=== PATIENT | female | born 1960 | race Two or more races ===

== ENCOUNTER 2022-02-07 07:45 | Inpatient (IN) | payer OTHER ==
[~2022-02-07] VITALS: Ht 154.9 cm; Wt 93.1 kg
[~2022-02-07 07:45] MED LIST: GLIM4TAB7 PO; METF500T PO; ROSU20TA2 PO
[2022-02-08 13:30] LABS: ABG BASE EXCESS -7.8 mmol/L (-2.0-2.0); ABG HCO3 15.6 mmol/L (22.0-26.0); ABG OXYGEN SATURATION 97.6 % (94-97); ABG PCO2 (T) 26.5 mmHg (32.0-45.0); ABG PO2 (T) 110.3 mmHg (75.0-100.0); FCOHb 0.4 % (0.0-3.9); FMetHb 0.1 % (0.0-1.5); FO2Hb 97.1 % (94-97); TOTAL HEMOGLOBIN 12.4 G/dl (12.0-16.0)
[2022-02-08] MEDS ORDERED: LEVO150T98 PO (14:14)
[2022-02-08] MEDS ORDERED: CARV-50 PO (14:14)
[2022-02-08] MEDS ORDERED: INSU100V41 SQ (14:14)
[2022-02-08] MEDS ORDERED: SPIR100T5 PO (14:14)
[2022-02-08] MEDS ORDERED: TICA90TA2 PO (14:14)
[2022-02-08 14:28] LABS: BASOPHILS % (AUTO) 0.5 % (0-1); EOSINOPHILS # (AUTO) 0.1 X10'3 (0-0.9); EOSINOPHILS % (AUTO) 1.4 % (0-6); LYMPHOCYTES # (AUTO) 2.3 X10'3 (1.1-4.8); LYMPHOCYTES % (AUTO) 29.3 % (21-51); MEAN CORPUSCULAR HEMOGLOBIN 27.8 PG (27.0-31.0); MEAN CORPUSCULAR HGB CONC 32.2 g/dL (33.0-36.5); MEAN CORPUSCULAR VOLUME 86.4 FL (78-98); MEAN PLATELET VOLUME 9.6 FL (7.4-10.4); MONOCYTES # (AUTO) 0.7 X10'3 (0-0.9); MONOCYTES % (AUTO) 8.4 % (2-12); NEUTROPHILS # (AUTO) 4.7 X10'3 (1.8-7.7); NEUTROPHILS % (AUTO) 60.4 % (42-75); PRE OP HEMATOCRIT 36.9 % (35.0-45.0); PRE OP HEMOGLOBIN 11.9 g/dL (12.0-16.0); PRE OP PLATELET COUNT 194 X10'3 (140-440); RED BLOOD COUNT 4.28 X10'6 (4.20-5.60); RED CELL DISTRIBUTION WIDTH 15.7 % (11.5-14.5)
[2022-02-08 14:37] LABS: CLARITY,URINE SLIGHTLY CLOUDY (Clear); COLOR,URINE YELLOW (Yellow); GLUCOSE, URINE NEGATIVE (Neg); KETONES,URINE NEGATIVE (Neg); LEUKOCYTE ESTERASE ,URINE NEGATIVE (Neg); NITRITES, URINE NEGATIVE (Neg); OCCULT BLOOD,URINE MODERATE (Neg); PROTEIN,URINE 100 mg/dl (Neg); UROBILINOGEN,URINE 0.2 E.U/dL (0.2-1.0)
[2022-02-08 14:39] LABS: UA COLLECTION TYPE NON-SPECIFIED
[2022-02-08 14:45] LABS: PRE OP PROTIME 10.5 SECONDS (9.0-12.0)
[2022-02-08 14:46] LABS: HEMOGLOBIN A1C 8.5 % (4.5-6.2)
[2022-02-08 14:47] LABS: ALBUMIN 4.3 G/DL (3.4-5.0); ALBUMIN/GLOBULIN RATIO 1.1 (1.1-1.5); ALKALINE PHOSPHATASE 86 IU/L (46-116); BLOOD UREA NITROGEN 20 MG/DL (7-18); BUN/CREATININE RATIO 14.5 (6.6-38.0); CALCIUM 9.2 MG/DL (8.5-10.1); CHLORIDE 102 MMOL/L (99-107); CREATININE 1.38 MG/DL (0.40-0.90); PRE OP ALT 25 U/L (30-65); PRE OP ANION GAP 13 (8-16); PRE OP AST 30 U/L (10-37); PRE OP BILIRUB, TOTAL 1.4 MG/DL (0.0-1.0); PRE OP GLUCOSE 140 MG/DL (70-104); PRE OP SODIUM 139 MMOL/L (135-145); TOTAL CARBON DIOXIDE 24.1 MMOL/L (24-32); TOTAL PROTEIN 8.3 G/DL (6.4-8.2); eGFR 39 ML/MIN
[2022-02-08 15:09] LABS: AMORPHOUS URATES 1+; BACTERIA,URINE FEW /HPF (Neg); HYALINE CASTS 0-3 /LPF (NEGATIVE); MUCUS STRANDS FEW /LPF (Neg); SQUAMOUS EPITHELIAL CELL,UR MODERATE /LPF (FEW)
[2022-02-08 15:10] LABS: RBC,URINE NONE SEEN /HPF (0-2); WBC,URINE 0-4 /HPF (0-4)
[2022-02-08 15:13] LABS: FINE GRANULAR CAST 0-3 /LPF (NEGATIVE)
[2022-02-11] VITALS (23 sets, daily range): BP systolic 95–144; BP diastolic 46–76
[2022-02-11] MEDS ORDERED: ringers solution, lacted 1,000 ML IV SCH (05:00)
[2022-02-11] MEDS ORDERED: LORazepam 2 mg/ml vial IV ONE (05:30)
[2022-02-11] MEDS ORDERED: DOCUMENT DATE & TIME OF BETA-BLOCKER PO ONE (05:30)
[2022-02-11] MEDS ORDERED: albuterol 2.5 MG/3 ML nebule NEB ONE (05:30)
[2022-02-11] MEDS ORDERED: cefazolin/dext.iso 2gm/100ml 100 ML IV ONE (05:30)
[2022-02-11] MEDS ORDERED: mupirocin 2% nasal ointment 1gm UD NS ONE (05:30)
[2022-02-11] MEDS ORDERED: famotidine 20mg tablet PO ONE (05:30)
[2022-02-11] MEDS ORDERED: vancomycin 1,500 MG in NS 300ml IV soln IV ONE (05:30)
[2022-02-11] MEDS ORDERED: ceFAZolin 1000mg inj ONE (05:33)
[2022-02-11] MEDS ORDERED: epiNEPHrine 1 mg/ml inj ONE (05:33)
--- NOTE | 2022-02-11 05:41 | NUR ---
Received pt as a direct admit, a 61 year old female to under go a CABG by Dr Trivedi. 18 G PIV placed in the rt AC, pt cleaned per MD orders, Blood band and ID band placed on pt, Pt is in a SB rhythm, message sent to Pharmacy regarding the need for antibiotics to be sent up.
--- NOTE | 2022-02-11 06:14 | NUR ---
report given to rec rn plan of care reviewed
--- NOTE | 2022-02-11 06:30 | NUR ---
Patient in room CICU 2013. I have received report from Rajesh CALLAWAY and had the opportunity to ask questions and assume patient care.
[2022-02-11] MEDS ORDERED: gabapentin 400mg capsule PO ONE (07:08)
--- NOTE | 2022-02-11 07:20 | NUR ---
Patient to CVOR, accompanied by 2 RN's and OR tech
[2022-02-11] MEDS ORDERED: SUFENTANIL CITRATE 50 MCG/ML 2ml ampule IV ONE (07:27)
[2022-02-11] MEDS ORDERED: propofol inj 20 ML IV ONE (07:29)
[2022-02-11] MEDS ORDERED: rocuronium 10mg/ml inj IV ONE ×3 (07:30→07:32)
[2022-02-11] MEDS ORDERED: papaverine 30 mg/ml 2ml inj. IA ONE (07:30)
[2022-02-11] MEDS ORDERED: MIDAZolam 1 MG/ML 5ML VIAL ONE (07:30)
[2022-02-11] MEDS ORDERED: heparin 10,000 units/1 ML INJ IR ONE (07:30)
[2022-02-11] MEDS ORDERED: sevoflurane 250ml liquid IH ONE (07:32)
[2022-02-11] MEDS ORDERED: protamine sulf. 10mg/ml inj. IV ONE (07:32)
[2022-02-11] MEDS ORDERED: INSULIN R 100 UNIT in NS 100ML (1 UNIT/1 ML) BAG IV ONE (07:32)
[2022-02-11] MEDS ORDERED: albumin (Human) 5% 250ml BOTTLE IV ONE (07:32)
[2022-02-11] MEDS ORDERED: ePHEDrine 50MG/ML INJ. ONE (07:32)
[2022-02-11] MEDS ORDERED: dextrose 50%-water 50ml dispensing syringe IV PRN ×2 (07:55→12:05)
[2022-02-11] MEDS ORDERED: Insulin Reg/NS 100units/100mL 100 ML IV SCH (07:55)
[2022-02-11] MEDS ORDERED: insulin glargine (Lantus) pen - multi-dose SQ PRN ×2 (07:55→12:05)
[2022-02-11] MEDS ORDERED: NORepinephrine 1 mg/ml inj IV ONE (08:00)
[2022-02-11] MEDS ORDERED: heparin 10,000 units/1 ML INJ ONE ×2 (08:00)
[2022-02-11] MEDS ORDERED: sodium bicarbonate (8.4%) 1 mEq/ml syringe ONE (08:00)
[2022-02-11] MEDS ORDERED: papaverine 30 mg/ml 2ml inj. ONE (08:00)
[2022-02-11] MEDS ORDERED: calcium chloride 100 MG/1 ML inj IV ONE (08:00)
[2022-02-11] MEDS ORDERED: albumin (human) 25% 100 ML IV solution IV ONE (08:00)
[2022-02-11] MEDS ORDERED: MAGNESIUM SULFATE 4 MEQ/ML (5gm/10ml) injection ONE (08:00)
[2022-02-11] MEDS ORDERED: aminocaproic acid 250 MG/1 ML inj. ONE (08:00)
[2022-02-11] MEDS ORDERED: heparin 1,000 units/ml 10ml inj ONE (08:00)
[2022-02-11] MEDS ORDERED: methylPREDNISolone sod succ 1000mg vial ONE (08:00)
[2022-02-11 09:06] LABS: ABG OXYGEN SATURATION 99.2 % (94-97); ABG PCO2 32.2 mmHg (32.0-45.0); CL (ABG) 109 mmol/L (98-110); FCOHb 0.3 % (0.0-3.9); FMetHb 0.3 % (0.0-1.5); FO2Hb 98.6 % (94-97); GLUCOSE (ABG) 161 mg/dl (70-105); K (ABG) 3.8 mmol/L (3.5-5.0); TOTAL HEMOGLOBIN 10.2 G/dl (12.0-16.0)
[2022-02-11 09:53] LABS: ABG BASE EXCESS -6.5 mmol/L (-2.0-2.0); ABG OXYGEN SATURATION 99.6 % (94-97); ABG PCO2 37.7 mmHg (32.0-45.0); ABG PO2 538.6 mmHg (75.0-100.0); CL (ABG) 105 mmol/L (98-110); FCOHb 0.4 % (0.0-3.9); FMetHb 0.3 % (0.0-1.5); FO2Hb 98.9 % (94-97); GLUCOSE (ABG) 155 mg/dl (70-105); IONIZED CA (ABG) 0.82 mmol/L (1.10-1.43); K (ABG) 4.1 mmol/L (3.5-5.0); TOTAL HEMOGLOBIN 8.8 G/dl (12.0-16.0)
--- NOTE | 2022-02-11 09:56 | NUR ---
DM/CABG Consults: Pt s/p CABGx4 this admit w/ hx T2DM A1C 8.5% per EMR. Pt would benefit from written/verbal high protein, HH, and DM eds once appropriate post-op prior to discharge. Addendum: 02/11/22 at [address] Amended: Links added. Addendum: 02/12/22 at [address] CORRECTION* DM/CABG Consults: Pt s/p CABGx5 this admit w/ hx T2DM A1C 8.5% per EMR. Pt would benefit from written/verbal high protein, HH, and DM eds once appropriate post-op prior to discharge.
[2022-02-11 10:13] LABS: ABG BASE EXCESS VENOUS -1.9 mmol/L (-2.0 - 2.0); ABG HCO3 VENOUS 23.3 mmol/L (21.0-28.0); ABG PCO2 VENOUS 41.6 mmHg (38.0-51.0); ABG PO2 VENOUS 46.2 mmHg (25.0-35.0); CL (ABG) 105 mmol/L (98-110); FCOHb VENOUS 0.7 % (0.0- 3.9); FHHb VENOUS 16.1 %; FMetHb VENOUS 0.3 % (0.0 - 0.5); FO2Hb VENOUS 82.9 %; GLUCOSE (ABG) 141 mg/dl (70-105); IONIZED CA (ABG) 1.04 mmol/L (1.10-1.43); K (ABG) 4.1 mmol/L (3.5-5.0)
[2022-02-11 10:50] LABS: ABG BASE EXCESS -1.6 mmol/L (-2.0-2.0); ABG HCO3 22.2 mmol/L (22.0-26.0); ABG OXYGEN SATURATION 99.5 % (94-97); ABG PCO2 33.8 mmHg (32.0-45.0); ABG PO2 420.8 mmHg (75.0-100.0); CL (ABG) 106 mmol/L (98-110); FCOHb 0.6 % (0.0-3.9); FMetHb 0.3 % (0.0-1.5); FO2Hb 98.6 % (94-97); GLUCOSE (ABG) 126 mg/dl (70-105); IONIZED CA (ABG) 0.96 mmol/L (1.10-1.43); K (ABG) 4.2 mmol/L (3.5-5.0); TOTAL HEMOGLOBIN 8.3 G/dl (12.0-16.0)
[2022-02-11 11:36] LABS: ABG BASE EXCESS VENOUS -1.6 mmol/L (-2.0 - 2.0); ABG HCO3 VENOUS 23.5 mmol/L (21.0-28.0); ABG PCO2 VENOUS 40.9 mmHg (38.0-51.0); ABG PO2 VENOUS 32.1 mmHg (25.0-35.0); CL (ABG) 106 mmol/L (98-110); FCOHb VENOUS 0.9 % (0.0- 3.9); FHHb VENOUS 35.2 %; FMetHb VENOUS 0.3 % (0.0 - 0.5); FO2Hb VENOUS 63.6 %; GLUCOSE (ABG) 117 mg/dl (70-105); IONIZED CA (ABG) 1.04 mmol/L (1.10-1.43); K (ABG) 3.8 mmol/L (3.5-5.0); TOTAL HEMOGLOBIN 8.8 G/dl (12.0-16.0)
[2022-02-11 11:38] LABS: ACTIVATED CLOTTING TIME 136 SEC (101-148)
[2022-02-11] MEDS ORDERED: Neutra Phos packet PO PRN (12:05)
[2022-02-11] MEDS ORDERED: bisacodyl 10mg suppository rectal RC PRN (12:05)
[2022-02-11] MEDS ORDERED: potassium Cl 20 mEq SR tablet PO PRN (12:05)
[2022-02-11] MEDS ORDERED: magnesium hydroxide 30ml (MOM) UD suspension PO PRN (12:05)
[2022-02-11] MEDS ORDERED: sodium chloride 0.45% 1,000 ML IV SCH (12:05)
[2022-02-11] MEDS ORDERED: HYDROcodone/acetaminophen 10/325mg tab PO PRN (12:05)
[2022-02-11] MEDS ORDERED: sodium phosphate inj. 15 MMOL in dextrose 5%-water 250 ML IV PRN (12:05)
[2022-02-11] MEDS ORDERED: sodium phosphate inj. 30 MMOL in dextrose 5%-water 250 ML IV PRN (12:05)
[2022-02-11] MEDS: Insulin Reg/NS 100units/100mL 100 ML IV SCH (12:05)
[2022-02-11] MEDS ORDERED: metoclopramide 5 mg/ml inj IV PRN (12:05)
[2022-02-11] MEDS ORDERED: magnesium citrate 296ml oral solution PO PRN (12:05)
[2022-02-11] MEDS ORDERED: niCARDipine-NS 40mg/200ml IVPB 200 ML IV PRN (12:05)
[2022-02-11] MEDS ORDERED: nitroGLYCERIN-Tridil 50MG/D5W 250 ML IV SCH (12:05)
[2022-02-11] MEDS ORDERED: acetaminophen 325mg tablet PO PRN ×2 (12:05)
[2022-02-11] MEDS ORDERED: magnesium 4gm in 100ml NS 100 ML IV PRN (12:05)
[2022-02-11] MEDS ORDERED: potassium CL 10mEq/100ml bag 100 ML IV PRN (12:05)
[2022-02-11] MEDS ORDERED: magnesium 2GM in 50ml NS 50 ML IV PRN (12:05)
[2022-02-11] MEDS ORDERED: mineral oil 133ml enema RC PRN (12:05)
--- NOTE | 2022-02-11 12:30 | NUR ---
Received to room 2013, accompanied by MDs and surgical crew. Placed on ventilator, to monitor technician, arterial line and PA line pressure monitored. Chest tubes to suction at 20 cm. Moctezuma cath to gravity drainage. Dressings are dry and intact. See assessment record. All vasoactive drugs are infusing via central line.
[2022-02-11 12:47] LABS: ABG BASE EXCESS -2.8 mmol/L (-2.0-2.0); ABG HCO3 21.6 mmol/L (22.0-26.0); ABG OXYGEN SATURATION 98.8 % (94-97); ABG PCO2 (T) 34.7 mmHg (32.0-45.0); ABG PO2 (T) 169.1 mmHg (75.0-100.0); FCOHb 0.3 % (0.0-3.9); FMetHb 0.5 % (0.0-1.5); PEEP 5 cm H2O; RESPIRATORY RATE 12 b/min; TIDAL VOLUME 500 mL; TOTAL HEMOGLOBIN 10.7 G/dl (12.0-16.0)
[2022-02-11 13:07] LABS: BASOPHILS % (AUTO) 0.2 % (0-1); EOSINOPHILS % (AUTO) 0.4 % (0-6); HEMATOCRIT 29.7 % (35.0-45.0); LYMPHOCYTES # (AUTO) 1.2 X10'3 (1.1-4.8); LYMPHOCYTES % (AUTO) 14.3 % (21-51); MEAN CORPUSCULAR HGB CONC 33.6 g/dL (33.0-36.5); MEAN CORPUSCULAR VOLUME 86.3 FL (78-98); MEAN PLATELET VOLUME 9.9 FL (7.4-10.4); MONOCYTES # (AUTO) 0.4 X10'3 (0-0.9); MONOCYTES % (AUTO) 4.3 % (2-12); NEUTROPHILS # (AUTO) 6.7 X10'3 (1.8-7.7); NEUTROPHILS % (AUTO) 80.8 % (42-75); PLATELET COUNT 100 X10'3 (140-440); RED BLOOD COUNT 3.44 X10'6 (4.20-5.60); WHITE BLOOD COUNT 8.3 X10'3 (4.5-11.0)
[2022-02-11 13:17] LABS: APTT 27 SECONDS (22-32)
[2022-02-11] MEDS: gabapentin 300mg capsule PO SCH ×2 (13:18→20:11)
[2022-02-11 13:19] LABS: ALANINE AMINOTRANSFERASE 13 U/L (12-78); ALBUMIN 3.2 G/DL (3.4-5.0); ALBUMIN/GLOBULIN RATIO 1.5 (1.1-1.5); ALKALINE PHOSPHATASE 56 IU/L (46-116); ANION GAP 13 (8-16); ASPARTATE AMINO TRANSFERASE 33 U/L (10-37); BILIRUBIN,TOTAL 1.2 MG/DL (0.1-1.0); BLOOD UREA NITROGEN 14 MG/DL (7-18); BUN/CREATININE RATIO 16.7 (6.6-38.0); CALCIUM 7.6 MG/DL (8.5-10.1); CHLORIDE 108 MMOL/L (99-107); CREATININE 0.84 MG/DL (0.40-0.90); GLUCOSE 125 MG/DL (70-104); MAGNESIUM 2.8 MG/DL (1.5-2.4); PHOSPHORUS 2.4 MG/DL (2.3-4.5); POTASSIUM 3.6 MMOL/L (3.5-5.1); SODIUM 143 MMOL/L (135-145); TOTAL CARBON DIOXIDE 22.2 MMOL/L (24-32); TOTAL PROTEIN 5.3 G/DL (6.4-8.2); eGFR 69 ML/MIN
[2022-02-11] MEDS: albumin (Human) 5% 250ml 250 ML IV PRN ×3 (13:30→17:52)
[2022-02-11] MEDS: potassium Cl 20mEq/100mL bag 100 ML IV PRN ×5 (13:53→21:36)
[2022-02-11] MEDS: morphine 2 MG/ML inj. syringe IV PRN (14:46)
[2022-02-11] MEDS: ceFAZolin/D5W- 1GM premix 50 ML IV SCH (15:26)
[2022-02-11] MEDS: morphine 4 MG/ML inj SYRINge IV PRN ×2 (16:05→21:36)
--- NOTE | 2022-02-11 18:09 | NUR ---
Problems reprioritized. Patient report given, questions answered & plan of care reviewed with .
--- NOTE | 2022-02-11 18:14 | NUR ---
called Dr. Trivedi informed him of patients weaning parameters, that she had good weaning parameters nif -25 vc 1088 rsbi 55 but that she did not have a cuff leak, updated him on her pa and sbp, stated that she can have another 5% albumin in 250ml if needed. He stated to " pull the tube" and that he did not want any steroids
[2022-02-11] MEDS ORDERED: albumin (Human) 5% 250ml 250 ML IV PRN (18:20)
--- NOTE | 2022-02-11 18:30 | NUR ---
Patient in room CICU 2013. I have received report from CESIA Nieves and had the opportunity to ask questions and assume patient care.
[2022-02-11 20:00] LABS: BASOPHILS % (AUTO) 0.4 % (0-1); EOSINOPHILS % (AUTO) 0 % (0-6); HEMATOCRIT 25.1 % (35.0-45.0); HEMOGLOBIN 8.3 g/dl (12.0-16.0); LYMPHOCYTES # (AUTO) 0.6 X10'3 (1.1-4.8); LYMPHOCYTES % (AUTO) 6.5 % (21-51); MEAN CORPUSCULAR HEMOGLOBIN 28.2 PG (27.0-31.0); MEAN CORPUSCULAR HGB CONC 33.1 g/dL (33.0-36.5); MEAN CORPUSCULAR VOLUME 85.2 FL (78-98); MEAN PLATELET VOLUME 10.2 FL (7.4-10.4); MONOCYTES # (AUTO) 0.3 X10'3 (0-0.9); MONOCYTES % (AUTO) 2.9 % (2-12); NEUTROPHILS % (AUTO) 90.2 % (42-75); PLATELET COUNT 97 X10'3 (140-440); RED BLOOD COUNT 2.95 X10'6 (4.20-5.60); RED CELL DISTRIBUTION WIDTH 15.7 % (11.5-14.5); WHITE BLOOD COUNT 8.9 X10'3 (4.5-11.0)
[2022-02-11 20:05] LABS: ALBUMIN 3.7 G/DL (3.4-5.0); ANION GAP 9 (8-16); BLOOD UREA NITROGEN 14 MG/DL (7-18); BUN/CREATININE RATIO 15.7 (6.6-38.0); CALCIUM 7.2 MG/DL (8.5-10.1); CHLORIDE 108 MMOL/L (99-107); CREATININE 0.89 MG/DL (0.40-0.90); GLUCOSE 210 MG/DL (70-104); MAGNESIUM 2.5 MG/DL (1.5-2.4); PHOSPHORUS 2.3 MG/DL (2.3-4.5); SODIUM 139 MMOL/L (135-145); TOTAL CARBON DIOXIDE 22.4 MMOL/L (24-32); eGFR 64 ML/MIN
[2022-02-11] MEDS: mupirocin 2% nasal ointment 1gm UD NS SCH (20:10)
[2022-02-11] MEDS: vancomycin/NS 1 GM ADD-VANTAGE 250 ML IV SCH (20:10)
[2022-02-11] MEDS: sennosides/docusate sodium tablet PO SCH (20:10)
[2022-02-11] MEDS: atorvastatin 10mg tablet PO SCH (20:10)
[2022-02-11 20:25] LABS: ABG BASE EXCESS -6.4 mmol/L (-2.0-2.0); ABG HCO3 18.5 mmol/L (22.0-26.0); ABG OXYGEN SATURATION 98.6 % (94-97); ABG PCO2 (T) 34.5 mmHg (32.0-45.0); ABG PO2 (T) 157.6 mmHg (75.0-100.0); FCOHb 0.3 % (0.0-3.9); FMetHb 0.4 % (0.0-1.5); FO2Hb 97.9 % (94-97); PATIENT TEMPERATURE 37.4; PEEP 5 cm H2O; TOTAL HEMOGLOBIN 8.9 G/dl (12.0-16.0)
[2022-02-11] MEDS ORDERED: racepinephrine 11.25mg/0.5ml nebule IH PRN (20:40)
[2022-02-12] VITALS (24 sets, daily range): BP systolic 75–103; BP diastolic 33–61
[2022-02-12] MEDS: ceFAZolin/D5W- 1GM premix 50 ML IV SCH ×4 (00:18→23:48)
[2022-02-12] MEDS: morphine 4 MG/ML inj SYRINge IV PRN (01:46)
[2022-02-12 03:29] LABS: BASOPHILS % (AUTO) 0.1 % (0-1); EOSINOPHILS % (AUTO) 0 % (0-6); HEMATOCRIT 24.3 % (35.0-45.0); HEMOGLOBIN 8.1 g/dl (12.0-16.0); LYMPHOCYTES # (AUTO) 0.7 X10'3 (1.1-4.8); LYMPHOCYTES % (AUTO) 6.6 % (21-51); MEAN CORPUSCULAR HEMOGLOBIN 28.7 PG (27.0-31.0); MEAN CORPUSCULAR HGB CONC 33.2 g/dL (33.0-36.5); MEAN CORPUSCULAR VOLUME 86.4 FL (78-98); MONOCYTES # (AUTO) 0.5 X10'3 (0-0.9); NEUTROPHILS % (AUTO) 88.3 % (42-75); PLATELET COUNT 96 X10'3 (140-440); RED BLOOD COUNT 2.82 X10'6 (4.20-5.60); WHITE BLOOD COUNT 10.2 X10'3 (4.5-11.0)
[2022-02-12 03:44] LABS: ALANINE AMINOTRANSFERASE 16 U/L (12-78); ALBUMIN 3.5 G/DL (3.4-5.0); ALBUMIN/GLOBULIN RATIO 1.8 (1.1-1.5); ALKALINE PHOSPHATASE 33 IU/L (46-116); ANION GAP 8 (8-16); ASPARTATE AMINO TRANSFERASE 40 U/L (10-37); BILIRUBIN,TOTAL 0.9 MG/DL (0.1-1.0); BLOOD UREA NITROGEN 13 MG/DL (7-18); BUN/CREATININE RATIO 15.7 (6.6-38.0); CALCIUM 7.3 MG/DL (8.5-10.1); CHLORIDE 108 MMOL/L (99-107); CREATININE 0.83 MG/DL (0.40-0.90); GLUCOSE 145 MG/DL (70-104); MAGNESIUM 2.5 MG/DL (1.5-2.4); PHOSPHORUS 2.7 MG/DL (2.3-4.5); POTASSIUM 4.6 MMOL/L (3.5-5.1); SODIUM 139 MMOL/L (135-145); TOTAL CARBON DIOXIDE 23.3 MMOL/L (24-32); TOTAL PROTEIN 5.5 G/DL (6.4-8.2); eGFR 70 ML/MIN
--- NOTE | 2022-02-12 06:17 | NUR ---
Problems reprioritized. Patient report given, questions answered & plan of care reviewed with CESIA Salinas.
[2022-02-12 06:34] LABS: ACT @ 1.70 U 286 SEC (193-297); ACT @ 2.84 U 418 SEC (260-420); BASELINE ACT 138 SEC (101-148); PATIENT WEIGHT 77.0k KG
[2022-02-12] MEDS: metoprolol tartrate 12.5mg (1/2 tablet) PO SCH ×2 (07:09→20:00)
[2022-02-12] MEDS: aspirin 81mg, enteric-coated 1 TAB TABLET.DR PO SCH (07:43)
[2022-02-12] MEDS: mupirocin 2% nasal ointment 1gm UD NS SCH ×2 (07:43→19:40)
[2022-02-12] MEDS: sennosides/docusate sodium tablet PO SCH ×2 (07:43→19:39)
[2022-02-12] MEDS: levoTHYROXINE 75mcg tablet PO SCH (07:43)
[2022-02-12] MEDS: gabapentin 300mg capsule PO SCH ×3 (07:43→20:02)
[2022-02-12] MEDS ORDERED: aspirin 325mg tablet, delayed-release (Ecotrin) PO SCH (08:00)
[2022-02-12] MEDS: vancomycin/NS 1 GM ADD-VANTAGE 250 ML IV SCH ×2 (08:17→19:39)
[2022-02-12] MEDS: ondansetron/PF 4mg/2ml inj IV PRN ×2 (08:19→16:59)
--- NOTE | 2022-02-12 08:30 | NUR ---
Medicated with Zofran for nausea. Bright Alvarez in to see pt. Aware of low BP.
--- NOTE | 2022-02-12 09:38 | NUR ---
Rt. groin sheath dc'd. manual pressure held for 20". Fem stop in place.
--- NOTE | 2022-02-12 11:17 | NUR ---
CABG Consult: Pt post-op day 1 s/p CABGx5 per EMR. Would benefit from diet ed prior to discharge; see prior RD note. Addendum: 02/12/22 at [address] Amended: Links added.
[2022-02-12] MEDS: HYDROcodone/acetaminophen 10/325mg tab PO PRN ×2 (11:18→18:29)
[2022-02-12] MEDS: insulin Lispro (HumaLOG) vial - multi-dose SQ SCH ×2 (12:53→20:09)
--- NOTE | 2022-02-12 15:25 | NUR ---
Fem Stop dc'd. Groin dressing clean and dry. Pt. to get OOB to chair soon.
--- NOTE | 2022-02-12 17:18 | NUR ---
Pt. to BSC then back to chair per nursing. Call light in reach.
--- NOTE | 2022-02-12 18:15 | NUR ---
Patient in room CICU 2013. I have received report from CESIA Salinas and had the opportunity to ask questions and assume patient care.
[2022-02-12] MEDS: atorvastatin 10mg tablet PO SCH (20:01)
[2022-02-12] MEDS: Insulin Reg/NS 100units/100mL 100 ML IV SCH (21:25)
[2022-02-13] VITALS (23 sets, daily range): BP systolic 83–115; BP diastolic 40–71
[2022-02-13 03:19] LABS: BASOPHILS % (AUTO) 0.3 % (0-1); EOSINOPHILS % (AUTO) 0.1 % (0-6); HEMATOCRIT 25.9 % (35.0-45.0); HEMOGLOBIN 8.4 g/dl (12.0-16.0); LYMPHOCYTES # (AUTO) 1.1 X10'3 (1.1-4.8); LYMPHOCYTES % (AUTO) 11.5 % (21-51); MEAN CORPUSCULAR HEMOGLOBIN 28.5 PG (27.0-31.0); MEAN CORPUSCULAR HGB CONC 32.6 g/dL (33.0-36.5); MEAN CORPUSCULAR VOLUME 87.4 FL (78-98); MEAN PLATELET VOLUME 10.1 FL (7.4-10.4); MONOCYTES % (AUTO) 10.3 % (2-12); NEUTROPHILS # (AUTO) 7.6 X10'3 (1.8-7.7); NEUTROPHILS % (AUTO) 77.8 % (42-75); PLATELET COUNT 102 X10'3 (140-440); RED BLOOD COUNT 2.96 X10'6 (4.20-5.60); RED CELL DISTRIBUTION WIDTH 16.1 % (11.5-14.5); WHITE BLOOD COUNT 9.8 X10'3 (4.5-11.0)
[2022-02-13 03:32] LABS: ALBUMIN 3.2 G/DL (3.4-5.0); ANION GAP 7 (8-16); BLOOD UREA NITROGEN 22 MG/DL (7-18); BUN/CREATININE RATIO 17.7 (6.6-38.0); CALCIUM 7.3 MG/DL (8.5-10.1); CHLORIDE 103 MMOL/L (99-107); CREATININE 1.24 MG/DL (0.40-0.90); GLUCOSE 271 MG/DL (70-104); MAGNESIUM 2.7 MG/DL (1.5-2.4); PHOSPHORUS 3.5 MG/DL (2.3-4.5); POTASSIUM 5.5 MMOL/L (3.5-5.1); SODIUM 133 MMOL/L (135-145); TOTAL CARBON DIOXIDE 23.1 MMOL/L (24-32); eGFR 44 ML/MIN
[2022-02-13] MEDS: HYDROcodone/acetaminophen 10/325mg tab PO PRN ×3 (03:50→19:26)
[2022-02-13] MEDS: morphine 2 MG/ML inj. syringe IV PRN (04:12)
[2022-02-13] MEDS ORDERED: furosemide 40mg/4ml inj IV ONE (07:05)
[2022-02-13] MEDS ORDERED: furosemide 20 MG/2 ML vial IV ONE (07:10)
[2022-02-13] MEDS ORDERED: albumin (human) 25% 100 ML IV solution IV ONE (07:15)
[2022-02-13] MEDS: metoprolol tartrate 12.5mg (1/2 tablet) PO SCH ×2 (08:00→19:57)
[2022-02-13] MEDS: sennosides/docusate sodium tablet PO SCH ×2 (08:13→19:56)
[2022-02-13] MEDS: levoTHYROXINE 75mcg tablet PO SCH (08:14)
[2022-02-13] MEDS: pantoprazole 40mg Tablet.DR PO SCH (08:14)
[2022-02-13] MEDS: aspirin 81mg, enteric-coated 1 TAB TABLET.DR PO SCH (08:14)
[2022-02-13] MEDS: magnesium Cl slow-release 64mg tablet PO SCH ×2 (08:20→19:55)
[2022-02-13] MEDS: potassium Cl 20 mEq SR tablet PO SCH ×2 (08:20→19:55)
[2022-02-13] MEDS: insulin Lispro (HumaLOG) vial - multi-dose SQ SCH ×4 (08:29→20:56)
--- NOTE | 2022-02-13 11:26 | NUR ---
CABG Consult: Pt post-op day 2 s/p CABGx5 per EMR. Pt seen by RD for written/verbal high protein/HH/DM eds w/ RD contact information provided. Pt reports drinking protein smoothie made w/ protein powder at home and daughter now bought protein supplements for her at home. Pt reports A1C previously "terrible" as was depressed and stopped all meds but past few months has been very thorough w/ taking meds per rx and checking Glu. Pt reports takes metformin BID, glimepiride BID, and Tresiba AM injection at home. RD reviewed importance of Glu control for wound healing and overall health and encouraged pt to contact dietitian's office if further nutrition questions/concerns. Pt is agreeable to strawberry-banana Deacon smoothie BIDBD for wound healing; PA notified. Addendum: 02/13/22 at [address] Amended: Links added.
--- NOTE | 2022-02-13 14:39 | NUR ---
Per ALONZO Alvarez. Ok to break down prevena to sternum as it is nor working. Rinse, cleanse, island dressing.
[2022-02-13] MEDS ORDERED: insulin Lispro (HumaLOG) vial - multi-dose SQ SCH (20:50)
[2022-02-13] MEDS: insulin glargine (Lantus) pen - multi-dose SQ SCH (21:00)
[2022-02-13] MEDS: atorvastatin 10mg tablet PO SCH (21:00)
--- NOTE | 2022-02-13 21:00 | NUR ---
RN Note -MD Communication Dr. Raza at bedside, preparing to transfer pt to floor, ok to DC scheduled potassium per MD.
--- NOTE | 2022-02-13 21:38 | NUR ---
Transfer Gave report to CESIA Ram. DCd central line and Moctezuma. Pt tolerated well. Transferred pt to 5721D.
[2022-02-14 02:00] VITALS: BP 105/69
[2022-02-14 06:00] VITALS: BP 114/61
[2022-02-14] MEDS: pantoprazole 40mg Tablet.DR PO SCH (07:36)
[2022-02-14] MEDS: metoprolol tartrate 12.5mg (1/2 tablet) PO SCH ×2 (07:37→19:50)
[2022-02-14] MEDS: levoTHYROXINE 75mcg tablet PO SCH (07:37)
[2022-02-14] MEDS: aspirin 81mg, enteric-coated 1 TAB TABLET.DR PO SCH (07:38)
[2022-02-14] MEDS: sennosides/docusate sodium tablet PO SCH ×2 (07:38→19:41)
[2022-02-14] MEDS: potassium Cl 20 mEq SR tablet PO SCH ×2 (08:00→20:00)
[2022-02-14] MEDS: magnesium Cl slow-release 64mg tablet PO SCH ×2 (08:00→20:00)
[2022-02-14] MEDS ORDERED: magnesium citrate 296ml oral solution PO ONE (08:30)
[2022-02-14] MEDS ORDERED: ASPI-1265 PO (08:34)
[2022-02-14] MEDS ORDERED: HYDR-3972 PO (08:34)
[2022-02-14 08:58] LABS: BASOPHILS # (AUTO) 0.1 X10'3 (0-0.2); BASOPHILS % (AUTO) 0.5 % (0-1); EOSINOPHILS % (AUTO) 0.2 % (0-6); HEMATOCRIT 26.8 % (35.0-45.0); HEMOGLOBIN 8.6 g/dl (12.0-16.0); LYMPHOCYTES # (AUTO) 1.7 X10'3 (1.1-4.8); LYMPHOCYTES % (AUTO) 12.7 % (21-51); MEAN CORPUSCULAR HEMOGLOBIN 28.3 PG (27.0-31.0); MEAN CORPUSCULAR HGB CONC 32.2 g/dL (33.0-36.5); MEAN CORPUSCULAR VOLUME 87.7 FL (78-98); MEAN PLATELET VOLUME 9.9 FL (7.4-10.4); MONOCYTES # (AUTO) 1.3 X10'3 (0-0.9); MONOCYTES % (AUTO) 9.9 % (2-12); NEUTROPHILS # (AUTO) 10.1 X10'3 (1.8-7.7); NEUTROPHILS % (AUTO) 76.7 % (42-75); PLATELET COUNT 144 X10'3 (140-440); RED BLOOD COUNT 3.05 X10'6 (4.20-5.60); RED CELL DISTRIBUTION WIDTH 15.9 % (11.5-14.5); WHITE BLOOD COUNT 13.2 X10'3 (4.5-11.0)
[2022-02-14 09:19] LABS: ALBUMIN 3.4 G/DL (3.4-5.0); ANION GAP 6 (8-16); BLOOD UREA NITROGEN 23 MG/DL (7-18); BUN/CREATININE RATIO 23.7 (6.6-38.0); CALCIUM 7.9 MG/DL (8.5-10.1); CHLORIDE 102 MMOL/L (99-107); CREATININE 0.97 MG/DL (0.40-0.90); GLUCOSE 311 MG/DL (70-104); POTASSIUM 5.6 MMOL/L (3.5-5.1); SODIUM 132 MMOL/L (135-145); TOTAL CARBON DIOXIDE 23.8 MMOL/L (24-32); eGFR 58 ML/MIN
[2022-02-14 11:00] VITALS: BP 90/51
[2022-02-14] MEDS: insulin Lispro (HumaLOG) vial - multi-dose SQ SCH (11:48)
[2022-02-14 15:00] VITALS: BP 128/63
[2022-02-14] MEDS: HYDROcodone/acetaminophen 10/325mg tab PO PRN ×2 (16:10→21:00)
[2022-02-14] MEDS: JUVEN Smoothie Arginine/Glut./Ca2+Bmb (Juven 19.3pkt) 240ml cup PO SCH (17:30)
[2022-02-14 18:00] VITALS: BP 94/54
--- NOTE | 2022-02-14 18:30 | NUR ---
Patient in room PCU 3017. I have received report from edi hunter and had the opportunity to ask questions and assume patient care.
[2022-02-14] MEDS: insulin glargine (Lantus) pen - multi-dose SQ SCH (21:16)
[2022-02-14] MEDS: atorvastatin 10mg tablet PO SCH (21:54)
[2022-02-14 22:00] VITALS: BP 107/57
[2022-02-15] MEDS: HYDROcodone/acetaminophen 10/325mg tab PO PRN ×2 (01:27→07:30)
[2022-02-15 02:00] VITALS: BP 125/62
--- NOTE | 2022-02-15 06:19 | NUR ---
Problems reprioritized. Patient report given, questions answered & plan of care reviewed with Juliana hunter.
[2022-02-15 06:58] VITALS: BP 134/60
[2022-02-15 06:58] LABS: BASOPHILS % (AUTO) 0.3 % (0-1); EOSINOPHILS # (AUTO) 0.1 X10'3 (0-0.9); EOSINOPHILS % (AUTO) 1.3 % (0-6); HEMATOCRIT 25.8 % (35.0-45.0); HEMOGLOBIN 8.5 g/dl (12.0-16.0); LYMPHOCYTES # (AUTO) 2.4 X10'3 (1.1-4.8); LYMPHOCYTES % (AUTO) 22.9 % (21-51); MEAN CORPUSCULAR HEMOGLOBIN 28.8 PG (27.0-31.0); MEAN CORPUSCULAR HGB CONC 33.1 g/dL (33.0-36.5); MEAN CORPUSCULAR VOLUME 87.2 FL (78-98); MEAN PLATELET VOLUME 9.7 FL (7.4-10.4); MONOCYTES % (AUTO) 9.7 % (2-12); NEUTROPHILS # (AUTO) 6.8 X10'3 (1.8-7.7); NEUTROPHILS % (AUTO) 65.8 % (42-75); PLATELET COUNT 147 X10'3 (140-440); RED BLOOD COUNT 2.96 X10'6 (4.20-5.60); RED CELL DISTRIBUTION WIDTH 15.9 % (11.5-14.5); WHITE BLOOD COUNT 10.4 X10'3 (4.5-11.0)
[2022-02-15 07:05] LABS: ALBUMIN 3.3 G/DL (3.4-5.0); ANION GAP 3 (8-16); BLOOD UREA NITROGEN 20 MG/DL (7-18); BUN/CREATININE RATIO 22.5 (6.6-38.0); CHLORIDE 103 MMOL/L (99-107); CREATININE 0.89 MG/DL (0.40-0.90); GLUCOSE 88 MG/DL (70-104); POTASSIUM 5.1 MMOL/L (3.5-5.1); SODIUM 134 MMOL/L (135-145); TOTAL CARBON DIOXIDE 27.7 MMOL/L (24-32); eGFR 64 ML/MIN
[2022-02-15] MEDS: JUVEN Smoothie Arginine/Glut./Ca2+Bmb (Juven 19.3pkt) 240ml cup PO SCH (07:30)
[2022-02-15] MEDS: potassium Cl 20 mEq SR tablet PO SCH (08:00)
[2022-02-15 08:35] VITALS: BP_SYST 134
[2022-02-15] MEDS: magnesium Cl slow-release 64mg tablet PO SCH (08:35)
[2022-02-15] MEDS: metoprolol tartrate 12.5mg (1/2 tablet) PO SCH (08:35)
[2022-02-15] MEDS: pantoprazole 40mg Tablet.DR PO SCH (08:37)
[2022-02-15] MEDS: aspirin 81mg, enteric-coated 1 TAB TABLET.DR PO SCH (08:37)
[2022-02-15] MEDS: levoTHYROXINE 75mcg tablet PO SCH (08:37)
[2022-02-15] MEDS: sennosides/docusate sodium tablet PO SCH (08:52)
--- NOTE | 2022-02-15 11:47 | NUR ---
IV removed telemetry box removed went over discharge instructions and answered all questions.
== END 2022-02-15 11:31 | disposition home or self-care (01) | DRG 236 ==
LOC: UNDOADMIN 02-11 04:00 → CICU 2S 02-11 04:00 → PCU 3S 02-13 21:45
PROVIDERS: ADMIT Thoracic Surgery (Cardiothoracic Vascular Surgery); ATTEND Thoracic Surgery (Cardiothoracic Vascular Surgery)
PROC: 021309W Bypass Coronary Artery, Four or More Arteries from Aorta with Autologous Venous Tissue, Open Approach (ICD-10-PCS; 2022-02-11)
PROC: 06BP4ZZ Excision of Right Saphenous Vein, Percutaneous Endoscopic Approach (ICD-10-PCS; 2022-02-11)
PROC: 02C00ZZ Extirpation of Matter from Coronary Artery, One Artery, Open Approach (ICD-10-PCS; 2022-02-11)
PROC: 5A1221Z Performance of Cardiac Output, Continuous (ICD-10-PCS; 2022-02-11)
PROC: B24BZZ4 Ultrasonography of Heart with Aorta, Transesophageal (ICD-10-PCS; 2022-02-11)
PROC: 02100Z9 Bypass Coronary Artery, One Artery from Left Internal Mammary, Open Approach (ICD-10-PCS; principal; 2022-02-11 07:32)
DX: I25.10 Atherosclerotic heart disease of native coronary artery without angina pectoris (principal); E11.9 Type 2 diabetes mellitus without complications; E03.9 Hypothyroidism, unspecified; E78.5 Hyperlipidemia, unspecified; I25.2 Old myocardial infarction; Z79.02 Long term (current) use of antithrombotics/antiplatelets; Z79.4 Long term (current) use of insulin; Z79.82 Long term (current) use of aspirin; Z79.84 Long term (current) use of oral hypoglycemic drugs; Z79.899 Other long term (current) drug therapy; E87.5 Hyperkalemia
CPT/HCPCS: 93312; 93325; Z7506; Z7508; 36415; 36430; 36600; 71045; 71046; 80048; 80053; 81001; 82330; 82435; 82803; 82947; 82948; 83036; 83735; 84100; 84132; 84295; 84443; 85018; 85025; 85347; 85384; 85610; 85730; 86885; 86900; 86901; 86920; 87081; 93005; 93880; 93970; 94002; 94010; 94640; 94668; 94760; 97110; 97116; 97530; A4618; A6258; A6449; A7000; A7048; C1751; G0378; J0171; J0690; J1644; J1815; J1940; J2150; J2250; J2270; J2405; J2440; J2704; J2720; J2765; J2930; J3370; J3480; J3490; J7030; J7040; J7050; J7060; J7120; P9016; P9045; P9047

== ENCOUNTER 2022-02-28 16:50 | Emergency (ER) | payer BC, OTHER ==
[~2022-02-28] VITALS: Ht 157.5 cm; Wt 77.3 kg
[~2022-02-28 16:50] MED LIST changes: +ASPI-1265 PO; +CARV-50 PO; +HYDR-3972 PO; +INSU100V41 SQ; +LEVO150T98 PO; +TICA90TA2 PO
[2022-02-28 18:12] LABS: BASOPHILS # (AUTO) 0.1 X10'3 (0-0.2); BASOPHILS % (AUTO) 0.8 % (0-1); EOSINOPHILS % (AUTO) 0.3 % (0-6); HEMATOCRIT 33.2 % (35.0-45.0); HEMOGLOBIN 10.3 g/dl (12.0-16.0); LYMPHOCYTES # (AUTO) 1.5 X10'3 (1.1-4.8); LYMPHOCYTES % (AUTO) 14.4 % (21-51); MEAN CORPUSCULAR HEMOGLOBIN 28.1 PG (27.0-31.0); MEAN CORPUSCULAR HGB CONC 31.1 g/dL (33.0-36.5); MEAN CORPUSCULAR VOLUME 90.4 FL (78-98); MEAN PLATELET VOLUME 9.9 FL (7.4-10.4); MONOCYTES # (AUTO) 0.8 X10'3 (0-0.9); MONOCYTES % (AUTO) 7.9 % (2-12); NEUTROPHILS # (AUTO) 7.9 X10'3 (1.8-7.7); NEUTROPHILS % (AUTO) 76.6 % (42-75); PLATELET COUNT 398 X10'3 (140-440); RED BLOOD COUNT 3.67 X10'6 (4.20-5.60); RED CELL DISTRIBUTION WIDTH 18.5 % (11.5-14.5); WHITE BLOOD COUNT 10.4 X10'3 (4.5-11.0)
[2022-02-28 18:26] LABS: ALANINE AMINOTRANSFERASE 21 U/L (12-78); ALBUMIN 3.5 G/DL (3.4-5.0); ALKALINE PHOSPHATASE 103 IU/L (46-116); ANION GAP 12 (8-16); ASPARTATE AMINO TRANSFERASE 26 U/L (10-37); BILIRUBIN,TOTAL 1.8 MG/DL (0.1-1.0); BLOOD UREA NITROGEN 28 MG/DL (7-18); BUN/CREATININE RATIO 23.9 (6.6-38.0); CHLORIDE 103 MMOL/L (99-107); CREATININE 1.17 MG/DL (0.40-0.90); GLUCOSE 120 MG/DL (70-104); LIPASE 197 U/L (73-393); POTASSIUM 4.7 MMOL/L (3.5-5.1); SODIUM 137 MMOL/L (135-145); TOTAL CARBON DIOXIDE 22.3 MMOL/L (24-32); eGFR 47 ML/MIN
[2022-02-28 21:28] LABS: CLARITY,URINE SLIGHTLY CLOUDY (Clear); COLOR,URINE YELLOW (Yellow); GLUCOSE, URINE NEGATIVE (Neg); KETONES,URINE TRACE mg/dl (Neg); LEUKOCYTE ESTERASE ,URINE NEGATIVE (Neg); NITRITES, URINE NEGATIVE (Neg); OCCULT BLOOD,URINE SMALL (Neg); PROTEIN,URINE 100 mg/dl (Neg); UROBILINOGEN,URINE 0.2 E.U/dL (0.2-1.0)
[2022-02-28 21:35] LABS: UA COLLECTION TYPE CLN CATCH MIDSTREAM
[2022-02-28 21:36] LABS: HYALINE CASTS 0-3 /LPF (NEGATIVE)
[2022-02-28 21:37] LABS: BACTERIA,URINE FEW /HPF (Neg); SQUAMOUS EPITHELIAL CELL,UR FEW /LPF (FEW); WBC,URINE 0-4 /HPF (0-4)
[2022-02-28] MEDS ORDERED: morphine 4 MG/ML inj SYRINge IV ONE (22:15)
[2022-02-28] MEDS ORDERED: famotidine/PF 10 mg/ml inj IV ONE (22:15)
[2022-02-28] MEDS ORDERED: HYDR-3965 PO (22:21)
[2022-02-28] MEDS ORDERED: ONDA4TAB12 PO (22:21)
[2022-02-28 22:56] LABS: LACTIC SEPSIS 2.4 MMOL/L (0.4-2.0)
[2022-02-28 23:17] VITALS: BP 123/72
== END 2022-02-28 23:21 | disposition home or self-care (01) ==
LOC: ER 16:51
DX: K80.70 Calculus of gallbladder and bile duct without cholecystitis without obstruction (principal); E80.6 Other disorders of bilirubin metabolism; Z95.5 Presence of coronary angioplasty implant and graft; K74.60 Unspecified cirrhosis of liver; Z86.19 Personal history of other infectious and parasitic diseases; Z79.82 Long term (current) use of aspirin; Z79.899 Other long term (current) drug therapy; Z79.4 Long term (current) use of insulin
CPT/HCPCS: 36415; 76700; 80053; 81001; 82140; 83605; 83690; 84145; 85025; 85610; 93005; 96374; 96375; 99285; J2270; J3490

== ENCOUNTER 2022-03-12 14:06 | Inpatient (IN) | payer OTHER ==
[~2022-03-12] VITALS: Ht 157.5 cm; Wt 170.0 kg
[~2022-03-12 14:06] MED LIST changes: +HYDR-3965 PO; +ONDA4TAB12 PO
[2022-03-12 14:46] LABS: BASOPHILS % (AUTO) 0.6 % (0-1); EOSINOPHILS # (AUTO) 0.1 X10'3 (0-0.9); EOSINOPHILS % (AUTO) 1.3 % (0-6); HEMATOCRIT 35.3 % (35.0-45.0); HEMOGLOBIN 11.2 g/dl (12.0-16.0); LYMPHOCYTES # (AUTO) 1.7 X10'3 (1.1-4.8); LYMPHOCYTES % (AUTO) 19.3 % (21-51); MEAN CORPUSCULAR HEMOGLOBIN 27.8 PG (27.0-31.0); MEAN CORPUSCULAR HGB CONC 31.7 g/dL (33.0-36.5); MEAN CORPUSCULAR VOLUME 87.7 FL (78-98); MONOCYTES # (AUTO) 0.7 X10'3 (0-0.9); MONOCYTES % (AUTO) 8.3 % (2-12); NEUTROPHILS # (AUTO) 6.3 X10'3 (1.8-7.7); NEUTROPHILS % (AUTO) 70.5 % (42-75); PLATELET COUNT 513 X10'3 (140-440); RED BLOOD COUNT 4.02 X10'6 (4.20-5.60); RED CELL DISTRIBUTION WIDTH 18.6 % (11.5-14.5); WHITE BLOOD COUNT 8.9 X10'3 (4.5-11.0)
[2022-03-12 15:17] LABS: ALANINE AMINOTRANSFERASE 61 U/L (12-78); ALBUMIN 3.7 G/DL (3.4-5.0); ALBUMIN/GLOBULIN RATIO 1.1 (1.1-1.5); ALKALINE PHOSPHATASE 108 IU/L (46-116); ANION GAP 12 (8-16); ASPARTATE AMINO TRANSFERASE 27 U/L (10-37); BILIRUBIN,TOTAL 1.3 MG/DL (0.1-1.0); BLOOD UREA NITROGEN 19 MG/DL (7-18); BUN/CREATININE RATIO 12.9 (6.6-38.0); CALCIUM 8.7 MG/DL (8.5-10.1); CHLORIDE 99 MMOL/L (99-107); CREATININE 1.47 MG/DL (0.40-0.90); GLUCOSE 255 MG/DL (70-104); SODIUM 129 MMOL/L (135-145); TOTAL CARBON DIOXIDE 18.2 MMOL/L (24-32); TOTAL PROTEIN 7.2 G/DL (6.4-8.2); eGFR 36 ML/MIN
[2022-03-12 15:58] LABS: D-DIMER 8.85 MG/L FEU (0-0.50)
[2022-03-12] MEDS ORDERED: insulin regular, human 10 units/0.1 ml syringe IV ONE (16:45)
[2022-03-12] MEDS ORDERED: calcium chloride 100 MG/1 ML inj IV ONE (16:45)
[2022-03-12] MEDS ORDERED: dextrose 50%-water 50ml dispensing syringe IV ONE (16:45)
[2022-03-12] MEDS ORDERED: magnesium 4gm in 100ml NS 100 ML IV PRN (17:25)
[2022-03-12] MEDS ORDERED: POTASSIUM BICARB 20meq eff tab 20 MEQ TABLET.EFF PO PRN ×2 (17:25)
[2022-03-12] MEDS ORDERED: potassium CL 10mEq/100ml bag 100 ML IV PRN (17:25)
[2022-03-12] MEDS ORDERED: magnesium 2GM in 50ml NS 50 ML IV PRN (17:25)
[2022-03-12] MEDS ORDERED: magnesium Cl slow-release 64mg tablet PO PRN (17:25)
[2022-03-12] MEDS ORDERED: acetaminophen 325mg tablet PO PRN (17:25)
[2022-03-12] MEDS ORDERED: ROSU40TA PO (17:49)
[2022-03-12] MEDS ORDERED: CARV3.122 PO (17:50)
[2022-03-12] MEDS ORDERED: METF-438 PO (17:51)
[2022-03-12] MEDS ORDERED: SPIR100T5 PO (17:53)
[2022-03-12] MEDS ORDERED: LEVO75TA98 PO ×2 (17:53→17:56)
[2022-03-12 17:58] LABS: MAGNESIUM 2.2 MG/DL (1.5-2.4)
[2022-03-12] MEDS: K and/or MAG REPLACEMENT MC SCH (19:23)
[2022-03-12 20:29] LABS: ALANINE AMINOTRANSFERASE 51 U/L (12-78); ALBUMIN 3.5 G/DL (3.4-5.0); ALBUMIN/GLOBULIN RATIO 1.1 (1.1-1.5); ALKALINE PHOSPHATASE 99 IU/L (46-116); ANION GAP 11 (8-16); ASPARTATE AMINO TRANSFERASE 23 U/L (10-37); BILIRUBIN,TOTAL 1.3 MG/DL (0.1-1.0); BLOOD UREA NITROGEN 21 MG/DL (7-18); BUN/CREATININE RATIO 14.6 (6.6-38.0); CALCIUM 9.5 MG/DL (8.5-10.1); CHLORIDE 102 MMOL/L (99-107); CREATININE 1.44 MG/DL (0.40-0.90); GLUCOSE 176 MG/DL (70-104); POTASSIUM 4.7 MMOL/L (3.5-5.1); SODIUM 132 MMOL/L (135-145); TOTAL CARBON DIOXIDE 18.6 MMOL/L (24-32); TOTAL PROTEIN 6.7 G/DL (6.4-8.2); eGFR 37 ML/MIN
--- NOTE | 2022-03-12 21:00 | NUR ---
Patient in room PCU 3024. I have received report from Freddie CALLAWAY and had the opportunity to ask questions and assume patient care.
--- NOTE | 2022-03-12 21:23 | NUR ---
Page Sent PAGER ID: [phone] MESSAGE: [facility] [id number] Cely Goss: Pt is requesting drug to help reduce nausea. JOSELYN, thank you
[2022-03-12] MEDS ORDERED: ondansetron 4mg rapidly disintigrating tab PO PRN (21:30)
[2022-03-12] MEDS: HYDROcodone/acetaminophen 5mg/325mg tablet PO PRN (21:36)
[2022-03-12 22:00] VITALS: BP 108/76
[2022-03-13] VITALS (8 sets, daily range): BP systolic 93–128; BP diastolic 60–82
[2022-03-13] MEDS: HYDROcodone/acetaminophen 5mg/325mg tablet PO PRN ×2 (05:37→13:55)
[2022-03-13 06:13] LABS: BASOPHILS % (AUTO) 0.4 % (0-1); EOSINOPHILS # (AUTO) 0.1 X10'3 (0-0.9); EOSINOPHILS % (AUTO) 1.2 % (0-6); HEMATOCRIT 33.1 % (35.0-45.0); HEMOGLOBIN 10.4 g/dl (12.0-16.0); LYMPHOCYTES # (AUTO) 1.9 X10'3 (1.1-4.8); LYMPHOCYTES % (AUTO) 22.7 % (21-51); MEAN CORPUSCULAR HEMOGLOBIN 27.4 PG (27.0-31.0); MEAN CORPUSCULAR HGB CONC 31.5 g/dL (33.0-36.5); MEAN PLATELET VOLUME 8.7 FL (7.4-10.4); MONOCYTES # (AUTO) 0.8 X10'3 (0-0.9); MONOCYTES % (AUTO) 9.7 % (2-12); NEUTROPHILS # (AUTO) 5.5 X10'3 (1.8-7.7); PLATELET COUNT 451 X10'3 (140-440); RED BLOOD COUNT 3.81 X10'6 (4.20-5.60); RED CELL DISTRIBUTION WIDTH 18.2 % (11.5-14.5); WHITE BLOOD COUNT 8.3 X10'3 (4.5-11.0)
[2022-03-13 06:16] LABS: ALBUMIN 3.5 G/DL (3.4-5.0); ANION GAP 12 (8-16); BLOOD UREA NITROGEN 22 MG/DL (7-18); BUN/CREATININE RATIO 14.9 (6.6-38.0); CHLORIDE 99 MMOL/L (99-107); CREATININE 1.48 MG/DL (0.40-0.90); GLUCOSE 174 MG/DL (70-104); MAGNESIUM 2.2 MG/DL (1.5-2.4); POTASSIUM 5.2 MMOL/L (3.5-5.1); SODIUM 130 MMOL/L (135-145); TOTAL CARBON DIOXIDE 18.6 MMOL/L (24-32); eGFR 36 ML/MIN
--- NOTE | 2022-03-13 06:18 | NUR ---
Problems reprioritized. Patient report given, questions answered & plan of care reviewed with Jocelyn RN.
[2022-03-13] MEDS ORDERED: DEXTROSE 15 GM of carb/4 tabs (each vial/BOTTLE has 4 tablets) PO PRN ×2 (06:25)
[2022-03-13] MEDS ORDERED: dextrose 50%-water 50ml dispensing syringe IV PRN ×2 (06:25)
[2022-03-13] MEDS ORDERED: MESSAGE TO PHARMACY PO ONE (06:25)
[2022-03-13] MEDS ORDERED: glucagon, human recombinant 1mg kit SUBCUT PRN (06:25)
[2022-03-13] MEDS: K and/or MAG REPLACEMENT MC SCH ×2 (08:00→20:00)
[2022-03-13 08:10] LABS: HEMOGLOBIN A1C 7.4 % (4.5-6.2)
--- NOTE | 2022-03-13 10:11 | NUR ---
PAGER ID: [phone] MESSAGE: Room: 9434A: Cely Goss: Dr. Raza would like for you to call him regarding this pt. His phone number is: [phone]. CESIA Banks [id number]
[2022-03-13] MEDS ORDERED: ASPI-611 PO (11:37)
[2022-03-13] MEDS ORDERED: LIDOcaine 1%/PF 5ML 10 MG/ML VIAL ONE (13:41)
--- NOTE | 2022-03-13 13:45 | NUR ---
PAGER ID: [phone] MESSAGE: Room: 0264A: Cely Goss: This pt doesn't have any scheduled medications except for insulin as needed. Their medication reconciliation is completed. CESIA Banks [id number]
--- NOTE | 2022-03-13 15:13 | NUR ---
PAGER ID: [phone] MESSAGE: Room: Cely Goss: Per Dr. Raza, he wants the pt to not receive brilinta, blood thinners, and metformin. CESIA Banks [id number]
[2022-03-13 15:30] LABS: BFSOURCE RIGHT PLEURAL FLD
[2022-03-13 15:45] LABS: GLUCOSE,BODY FLUID 197 MG/DL; LDH,BODY FLUID 126 U/L; TOTAL PROTEIN,BODY FLUID 3.6 G/DL
[2022-03-13] MEDS: levoTHYROXINE 75mcg tablet PO SCH (15:48)
[2022-03-13 15:54] LABS: BFAPPEAR HAZY; BFCOLOR AMBER
[2022-03-13 15:55] LABS: BF WBC COUNT 481 /CU MM (0-1000); BFVOLUME 60 ML
[2022-03-13 16:03] LABS: LYMPHOCYTES,BODY FLUID 57 %; NEUTROPHILS,BODY FLUID 30 %
[2022-03-13 16:04] LABS: BF MESOTHELIAL CELLS FEW; MONOCYTES,BODY FLUID 13 %
--- NOTE | 2022-03-13 16:23 | NUR ---
PAGER ID: [phone] MESSAGE: Room: Cely Goss: Second page: Per Dr. Raza, he wants the pt to not receive brilinta, blood thinners, or metformin. CESIA Banks [id number]
--- NOTE | 2022-03-13 18:25 | NUR ---
Patient in room PCU 3024. I have received report from Jocelyn CALLAWAY and had the opportunity to ask questions and assume patient care.
[2022-03-13] MEDS: insulin Lispro (HumaLOG) vial - multi-dose SQ SCH (18:56)
[2022-03-13 19:56] LABS: BF RBC COUNT 11225 /CU MM
[2022-03-13] MEDS: ticagrelor 90mg tablet PO SCH (20:00)
--- NOTE | 2022-03-13 20:00 | NUR ---
Per report doctor advised not to give Brilinta.
[2022-03-13] MEDS: insulin glargine (Lantus) pen - multi-dose SQ SCH (21:07)
[2022-03-13] MEDS: carVEDilol 3.125mg tablet PO SCH (21:13)
[2022-03-14 02:00] VITALS: BP 104/74
[2022-03-14 06:00] VITALS: BP 105/56
--- NOTE | 2022-03-14 06:14 | NUR ---
Problems reprioritized. Patient report given, questions answered & plan of care reviewed with Jocelyn RN.
[2022-03-14 06:25] LABS: BASOPHILS % (AUTO) 0.6 % (0-1); EOSINOPHILS # (AUTO) 0.1 X10'3 (0-0.9); EOSINOPHILS % (AUTO) 1.5 % (0-6); HEMATOCRIT 32.3 % (35.0-45.0); HEMOGLOBIN 10.5 g/dl (12.0-16.0); LYMPHOCYTES # (AUTO) 1.8 X10'3 (1.1-4.8); LYMPHOCYTES % (AUTO) 22.3 % (21-51); MEAN CORPUSCULAR HEMOGLOBIN 28.2 PG (27.0-31.0); MEAN CORPUSCULAR HGB CONC 32.5 g/dL (33.0-36.5); MEAN CORPUSCULAR VOLUME 86.8 FL (78-98); MEAN PLATELET VOLUME 8.5 FL (7.4-10.4); MONOCYTES # (AUTO) 0.7 X10'3 (0-0.9); MONOCYTES % (AUTO) 8.8 % (2-12); NEUTROPHILS # (AUTO) 5.4 X10'3 (1.8-7.7); NEUTROPHILS % (AUTO) 66.8 % (42-75); PLATELET COUNT 325 X10'3 (140-440); RED BLOOD COUNT 3.72 X10'6 (4.20-5.60); RED CELL DISTRIBUTION WIDTH 18.1 % (11.5-14.5)
[2022-03-14 07:47] LABS: ALBUMIN 3.3 G/DL (3.4-5.0); ANION GAP 8 (8-16); BLOOD UREA NITROGEN 21 MG/DL (7-18); BUN/CREATININE RATIO 17.6 (6.6-38.0); CALCIUM 8.8 MG/DL (8.5-10.1); CHLORIDE 103 MMOL/L (99-107); CREATININE 1.19 MG/DL (0.40-0.90); GLUCOSE 118 MG/DL (70-104); MAGNESIUM 2.3 MG/DL (1.5-2.4); POTASSIUM 4.7 MMOL/L (3.5-5.1); SODIUM 131 MMOL/L (135-145); TOTAL CARBON DIOXIDE 19.7 MMOL/L (24-32); eGFR 46 ML/MIN
[2022-03-14] MEDS: K and/or MAG REPLACEMENT MC SCH ×2 (08:00→20:00)
[2022-03-14] MEDS ORDERED: spironolactone 25 MG tablet PO SCH (08:00)
[2022-03-14] MEDS ORDERED: insulin glargine (Lantus) pen - multi-dose SQ SCH (08:00)
[2022-03-14] MEDS: ticagrelor 90mg tablet PO SCH (08:00)
[2022-03-14] MEDS: aspirin 81mg, enteric-coated 1 TAB TABLET.DR PO SCH (08:13)
[2022-03-14] MEDS: atorvastatin 20mg tablet PO SCH (08:14)
[2022-03-14] MEDS: HYDROcodone/acetaminophen 5mg/325mg tablet PO PRN ×2 (08:14→20:08)
[2022-03-14] MEDS: levoTHYROXINE 75mcg tablet PO SCH (08:14)
[2022-03-14] MEDS: carVEDilol 3.125mg tablet PO SCH ×2 (08:14→20:00)
[2022-03-14] MEDS: insulin Lispro (HumaLOG) vial - multi-dose SQ SCH ×3 (08:24→19:03)
[2022-03-14 11:00] VITALS: BP 91/52
[2022-03-14] MEDS: furosemide 20MG tablet PO SCH (11:01)
[2022-03-14 15:00] VITALS: BP 113/65
[2022-03-14 18:00] VITALS: BP 104/60
[2022-03-14] MEDS: insulin glargine (Lantus) pen - multi-dose SQ SCH (20:53)
[2022-03-14 22:00] VITALS: BP 93/61
[2022-03-15 02:00] VITALS: BP 104/53
[2022-03-15 06:00] VITALS: BP 100/70
[2022-03-15 06:54] LABS: BASOPHILS # (AUTO) 0.1 X10'3 (0-0.2); BASOPHILS % (AUTO) 0.8 % (0-1); EOSINOPHILS # (AUTO) 0.1 X10'3 (0-0.9); EOSINOPHILS % (AUTO) 1.8 % (0-6); HEMATOCRIT 32.4 % (35.0-45.0); HEMOGLOBIN 10.3 g/dl (12.0-16.0); LYMPHOCYTES # (AUTO) 1.8 X10'3 (1.1-4.8); LYMPHOCYTES % (AUTO) 26.3 % (21-51); MEAN CORPUSCULAR HEMOGLOBIN 27.5 PG (27.0-31.0); MEAN CORPUSCULAR HGB CONC 31.7 g/dL (33.0-36.5); MEAN CORPUSCULAR VOLUME 86.8 FL (78-98); MEAN PLATELET VOLUME 8.7 FL (7.4-10.4); MONOCYTES # (AUTO) 0.7 X10'3 (0-0.9); MONOCYTES % (AUTO) 9.8 % (2-12); NEUTROPHILS # (AUTO) 4.1 X10'3 (1.8-7.7); NEUTROPHILS % (AUTO) 61.3 % (42-75); PLATELET COUNT 295 X10'3 (140-440); RED BLOOD COUNT 3.73 X10'6 (4.20-5.60); RED CELL DISTRIBUTION WIDTH 18.5 % (11.5-14.5); WHITE BLOOD COUNT 6.7 X10'3 (4.5-11.0)
[2022-03-15 07:08] LABS: ALBUMIN 3.3 G/DL (3.4-5.0); ANION GAP 8 (8-16); BLOOD UREA NITROGEN 20 MG/DL (7-18); BUN/CREATININE RATIO 18.2 (6.6-38.0); CALCIUM 8.5 MG/DL (8.5-10.1); CHLORIDE 104 MMOL/L (99-107); GLUCOSE 62 MG/DL (70-104); MAGNESIUM 2.2 MG/DL (1.5-2.4); POTASSIUM 4.3 MMOL/L (3.5-5.1); SODIUM 134 MMOL/L (135-145); TOTAL CARBON DIOXIDE 22.1 MMOL/L (24-32); eGFR 50 ML/MIN
[2022-03-15] MEDS: K and/or MAG REPLACEMENT MC SCH (07:25)
[2022-03-15] MEDS: levoTHYROXINE 75mcg tablet PO SCH (07:38)
[2022-03-15] MEDS: atorvastatin 20mg tablet PO SCH (07:38)
[2022-03-15] MEDS: furosemide 20MG tablet PO SCH (07:38)
[2022-03-15] MEDS: carVEDilol 3.125mg tablet PO SCH (07:38)
[2022-03-15] MEDS: aspirin 81mg, enteric-coated 1 TAB TABLET.DR PO SCH (07:38)
[2022-03-15] MEDS: HYDROcodone/acetaminophen 5mg/325mg tablet PO PRN (07:49)
--- NOTE | 2022-03-15 09:10 | NUR ---
PAGER ID: [phone] MESSAGE: Room: 3024A: Cely Barrios: This pt is requesting a stool softener. They haven't had a bowel movement since 03/12. CESIA Banks 6223
[2022-03-15] MEDS: insulin Lispro (HumaLOG) vial - multi-dose SQ SCH (09:31)
[2022-03-15] MEDS ORDERED: docusate sod 100mg capsule PO SCH (09:35)
[2022-03-15 11:00] VITALS: BP 93/63
[2022-03-15] MEDS ORDERED: FURO20TA4 PO (11:04)
--- NOTE | 2022-03-15 14:18 | NUR ---
Pt discharged to home from the hospital. Discharge paperwork reviewed and signed with the assistance of this ad copy writer. PIV and telemetry removed prior to discharge. Discharge medications were sent to the pt's preferred pharmacy. Belongings were returned at the time of discharge.
== END 2022-03-15 12:43 | disposition home or self-care (01) | DRG 314 ==
LOC: ER 14:06 → ED HOLD 17:28 → PCU 3S 20:40
PROVIDERS: ADMIT Internal Medicine; ATTEND Internal Medicine
PROC: 0W9B30Z Drainage of Left Pleural Cavity with Drainage Device, Percutaneous Approach (ICD-10-PCS; principal; 2022-03-13)
DX: I31.3 Pericardial effusion (noninflammatory) (principal); N17.0 Acute kidney failure with tubular necrosis; I50.22 Chronic systolic (congestive) heart failure; E87.1 Hypo-osmolality and hyponatremia; J91.8 Pleural effusion in other conditions classified elsewhere; E87.5 Hyperkalemia; E03.9 Hypothyroidism, unspecified; E11.9 Type 2 diabetes mellitus without complications; E78.5 Hyperlipidemia, unspecified; I11.0 Hypertensive heart disease with heart failure; I95.9 Hypotension, unspecified; R06.03 Acute respiratory distress; I25.10 Atherosclerotic heart disease of native coronary artery without angina pectoris; K74.60 Unspecified cirrhosis of liver; K80.20 Calculus of gallbladder without cholecystitis without obstruction; Z79.4 Long term (current) use of insulin; Z79.84 Long term (current) use of oral hypoglycemic drugs; Z79.899 Other long term (current) drug therapy; Z79.82 Long term (current) use of aspirin; Z95.1 Presence of aortocoronary bypass graft; Z79.02 Long term (current) use of antithrombotics/antiplatelets
CPT/HCPCS: 32555; 36415; 71045; 71250; 80048; 80053; 82945; 82948; 83036; 83605; 83615; 83735; 83880; 83986; 84145; 84157; 84484; 85025; 85379; 87040; 87070; 87081; 89051; 93005; 93308; 99285; A6250; G0378; J1815; J3490

== ENCOUNTER 2022-03-17 13:35 | Inpatient (IN) | payer OTHER ==
[~2022-03-17] VITALS: Ht 157.5 cm; Wt 74.2 kg
[~2022-03-17 13:35] MED LIST changes: -ASPI-1265 PO; +ASPI-611 PO; -CARV-50 PO; +CARV3.122 PO; +FURO20TA4 PO; -HYDR-3965 PO; -HYDR-3972 PO; -LEVO150T98 PO; +LEVO75TA98 PO; +METF-438 PO; -METF500T PO; -ONDA4TAB12 PO; -ROSU20TA2 PO; +ROSU40TA PO; -TICA90TA2 PO
[2022-03-17] MEDS ORDERED: normal saline 1000ml 1,000 ML IV ONE (17:40)
[2022-03-17] MEDS ORDERED: piperacillin/tazo 3.375gm/50ml 50 ML IV ONE (17:40)
[2022-03-17] MEDS ORDERED: iohexol 300mg/ml 100ml inj. ONE (17:50)
[2022-03-17 18:06] LABS: BASOPHILS # (AUTO) 0.1 X10'3 (0-0.2); BASOPHILS % (AUTO) 0.9 % (0-1); EOSINOPHILS # (AUTO) 0.1 X10'3 (0-0.9); HEMATOCRIT 31.9 % (35.0-45.0); HEMOGLOBIN 10.3 g/dl (12.0-16.0); LYMPHOCYTES # (AUTO) 1.7 X10'3 (1.1-4.8); LYMPHOCYTES % (AUTO) 21.6 % (21-51); MEAN CORPUSCULAR HEMOGLOBIN 28.1 PG (27.0-31.0); MEAN CORPUSCULAR HGB CONC 32.3 g/dL (33.0-36.5); MEAN PLATELET VOLUME 8.7 FL (7.4-10.4); MONOCYTES # (AUTO) 0.5 X10'3 (0-0.9); MONOCYTES % (AUTO) 5.8 % (2-12); NEUTROPHILS # (AUTO) 5.6 X10'3 (1.8-7.7); NEUTROPHILS % (AUTO) 70.7 % (42-75); PLATELET COUNT 265 X10'3 (140-440); RED BLOOD COUNT 3.66 X10'6 (4.20-5.60); RED CELL DISTRIBUTION WIDTH 18.3 % (11.5-14.5)
[2022-03-17 18:17] LABS: ALANINE AMINOTRANSFERASE 37 U/L (12-78); ALBUMIN 3.6 G/DL (3.4-5.0); ALKALINE PHOSPHATASE 116 IU/L (46-116); ANION GAP 7 (8-16); ASPARTATE AMINO TRANSFERASE 27 U/L (10-37); BILIRUBIN,TOTAL 0.9 MG/DL (0.1-1.0); BLOOD UREA NITROGEN 14 MG/DL (7-18); BUN/CREATININE RATIO 15.2 (6.6-38.0); CALCIUM 8.5 MG/DL (8.5-10.1); CHLORIDE 103 MMOL/L (99-107); CREATININE 0.92 MG/DL (0.40-0.90); GLUCOSE 164 MG/DL (70-104); POTASSIUM 4.1 MMOL/L (3.5-5.1); SODIUM 136 MMOL/L (135-145); TOTAL PROTEIN 7.2 G/DL (6.4-8.2); eGFR 62 ML/MIN
[2022-03-17 18:20] LABS: MAGNESIUM 2.5 MG/DL (1.5-2.4)
[2022-03-17] MEDS ORDERED: INSU100V41 (19:30)
[2022-03-17] MEDS ORDERED: INSU100V41 SQ (19:31)
[2022-03-17 19:32] LABS: URINE HCG NEGATIVE (NEG)
[2022-03-17 19:34] LABS: CLARITY,URINE CLEAR (Clear); COLOR,URINE YELLOW (Yellow); GLUCOSE, URINE NEGATIVE (Neg); KETONES,URINE NEGATIVE (Neg); LEUKOCYTE ESTERASE ,URINE NEGATIVE (Neg); NITRITES, URINE NEGATIVE (Neg); OCCULT BLOOD,URINE NEGATIVE (Neg); PH,URINE 6.5 (4.8-8.0); PROTEIN,URINE NEGATIVE (Neg); UROBILINOGEN,URINE 0.2 E.U/dL (0.2-1.0)
[2022-03-17 19:35] LABS: UA COLLECTION TYPE CLN CATCH MIDSTREAM
[2022-03-17] MEDS ORDERED: morphine 4 MG/ML inj SYRINge IV ONE (19:35)
[2022-03-17] MEDS ORDERED: ondansetron/PF 4mg/2ml inj IV ONE (19:35)
[2022-03-17] MEDS ORDERED: vancomycin 1,750 MG in NS 350ml IV soln IV ONE (20:45)
[2022-03-17] MEDS ORDERED: temazepam 15mg capsule PO PRN (21:00)
[2022-03-17] MEDS ORDERED: ondansetron/PF 4mg/2ml inj IV PRN (21:40)
[2022-03-17] MEDS ORDERED: morphine 2 MG/ML inj. syringe IV PRN (21:40)
[2022-03-17] MEDS ORDERED: acetaminophen 325mg tablet PO PRN ×2 (21:40)
[2022-03-17] MEDS ORDERED: bisacodyl 10mg suppository rectal RC PRN (21:40)
[2022-03-17] MEDS ORDERED: acetaminophen 650mg rectal suppository RC PRN (21:40)
[2022-03-17] MEDS ORDERED: diphenhydrAMINE 25mg capsule PO PRN (21:40)
[2022-03-17] MEDS ORDERED: mag hydrox/Alum hydrox/simeth 30ml oral suspension PO PRN (21:40)
[2022-03-17] MEDS ORDERED: HYDROcodone/acetaminophen 5mg/325mg tablet PO PRN (21:40)
[2022-03-17] MEDS ORDERED: diphenhydrAMINE 50 mg/ml inj IV PRN (21:40)
[2022-03-17] MEDS ORDERED: ondansetron 4mg rapidly disintigrating tab PO PRN (21:40)
[2022-03-17] MEDS ORDERED: ipratropium/albuterol 3ml nebule NEB PRN (21:40)
[2022-03-17] MEDS ORDERED: HYDROmorphone inj. 0.5 MG/0.5 ML DISP.SYRIN IV PRN (21:40)
[2022-03-17] MEDS ORDERED: DEXTROSE 15 GM of carb/4 tabs (each vial/BOTTLE has 4 tablets) PO PRN ×2 (22:00)
[2022-03-17] MEDS ORDERED: MESSAGE TO PHARMACY PO ONE (22:00)
[2022-03-17] MEDS ORDERED: dextrose 50%-water 50ml dispensing syringe IV PRN ×2 (22:00)
[2022-03-17] MEDS ORDERED: glucagon, human recombinant 1mg kit SUBCUT PRN (22:00)
[2022-03-17 22:23] LABS: PHOSPHORUS 3.5 MG/DL (2.3-4.5)
[2022-03-17 22:47] LABS: APTT 23 SECONDS (22-32)
[2022-03-17 22:51] LABS: CREATINE KINASE 44 U/L (26-192); LIPASE 393 U/L (73-393)
[2022-03-17] MEDS: morphine 2 MG/ML inj. syringe IV PRN (23:11)
[2022-03-18] VITALS (7 sets, daily range): BP systolic 95–129; BP diastolic 58–72
[2022-03-18] MEDS: morphine 2 MG/ML inj. syringe IV PRN ×4 (05:35→20:36)
--- NOTE | 2022-03-18 06:36 | NUR ---
Problems reprioritized. Patient report given, questions answered & plan of care reviewed with CESIA GONZÁLES.
[2022-03-18 06:49] LABS: ALANINE AMINOTRANSFERASE 28 U/L (12-78); ALBUMIN 3.2 G/DL (3.4-5.0); ALKALINE PHOSPHATASE 93 IU/L (46-116); ANION GAP 8 (8-16); ASPARTATE AMINO TRANSFERASE 24 U/L (10-37); BILIRUBIN,TOTAL 0.8 MG/DL (0.1-1.0); BLOOD UREA NITROGEN 16 MG/DL (7-18); CALCIUM 8.5 MG/DL (8.5-10.1); CHLORIDE 105 MMOL/L (99-107); CHOL/HDL RATIO 2.6 (0.00-4.99); CHOLESTEROL 86 MG/DL (0-200); HDL CHOLESTEROL 33 MG/DL (35-60); LDL CHOLESTEROL 36 MG/DL (50-100); POTASSIUM 4.2 MMOL/L (3.5-5.1); SODIUM 135 MMOL/L (135-145); TOTAL CARBON DIOXIDE 21.8 MMOL/L (24-32); TOTAL PROTEIN 6.3 G/DL (6.4-8.2); TRIGLYCERIDES 97 MG/DL (20-135)
[2022-03-18 07:06] LABS: BUN/CREATININE RATIO 17.8 (6.6-38.0); GLUCOSE 138 MG/DL (70-104); eGFR 64 ML/MIN
[2022-03-18 07:20] LABS: BASOPHILS # (AUTO) 0.1 X10'3 (0-0.2); BASOPHILS % (AUTO) 0.8 % (0-1); EOSINOPHILS # (AUTO) 0.1 X10'3 (0-0.9); EOSINOPHILS % (AUTO) 0.7 % (0-6); HEMATOCRIT 31.9 % (35.0-45.0); LYMPHOCYTES # (AUTO) 1.7 X10'3 (1.1-4.8); LYMPHOCYTES % (AUTO) 25.3 % (21-51); MEAN CORPUSCULAR HEMOGLOBIN 27.6 PG (27.0-31.0); MEAN CORPUSCULAR HGB CONC 31.2 g/dL (33.0-36.5); MEAN CORPUSCULAR VOLUME 88.4 FL (78-98); MONOCYTES # (AUTO) 0.5 X10'3 (0-0.9); MONOCYTES % (AUTO) 7.9 % (2-12); NEUTROPHILS # (AUTO) 4.4 X10'3 (1.8-7.7); NEUTROPHILS % (AUTO) 65.3 % (42-75); PLATELET COUNT 195 X10'3 (140-440); RED BLOOD COUNT 3.61 X10'6 (4.20-5.60); WHITE BLOOD COUNT 6.7 X10'3 (4.5-11.0)
[2022-03-18] MEDS ORDERED: hydrocortisone sod succ/PF 100mg/2ml inj. IV SCH (08:00)
--- NOTE | 2022-03-18 09:11 | NUR ---
Diabetes consult: Noted pt w/ hx of DM A1c 7.4 fair control. Written DM ed w/ RD contact info placed in pt chart. Addendum: 03/18/22 at [address] Amended: Links added.
[2022-03-18] MEDS ORDERED: vancomycin/NS 1 GM ADD-VANTAGE 250 ML IV SCH (10:00)
[2022-03-18] MEDS: pantoprazole 40mg Tablet.DR PO SCH (10:14)
[2022-03-18] MEDS: furosemide 10 MG/1 ML 10ml inj IV SCH ×2 (10:14→20:44)
[2022-03-18] MEDS: aspirin 81mg, enteric-coated 1 TAB TABLET.DR PO SCH (10:15)
[2022-03-18] MEDS: docusate sod 100mg capsule PO SCH ×2 (10:15→20:42)
[2022-03-18] MEDS: carVEDilol 3.125mg tablet PO SCH ×2 (10:15→21:26)
[2022-03-18] MEDS: levoTHYROXINE 75mcg tablet PO SCH (10:15)
[2022-03-18] MEDS: HYDROchlorothiazide 25mg tablet PO SCH ×2 (10:15→20:42)
[2022-03-18] MEDS: piperacillin/tazo 4.5gm/100ml 100 ML IV SCH ×2 (10:16→21:26)
[2022-03-18] MEDS ORDERED: cefazolin/dext.iso 2gm/50ml 50 ML IV ONE (10:20)
[2022-03-18] MEDS ORDERED: MESSAGE TO PHARMACY IJ ONE (10:20)
--- NOTE | 2022-03-18 14:10 | NUR ---
Received pt from Ortho 4009 to room 3017N pt awake alert & oriented. No change noted from am assessment. Pt independently to bathroom. Bed low, call light in reach.
[2022-03-18] MEDS ORDERED: cefazolin/dext.iso 2gm/100ml 100 ML IV ONE (14:40)
--- NOTE | 2022-03-18 18:26 | NUR ---
Problems reprioritized. Patient report given, questions answered & plan of care reviewed with CESIA Lemus.
[2022-03-18] MEDS: atorvastatin 20mg tablet PO SCH (20:40)
[2022-03-18] MEDS: magnesium hydroxide 30ml (MOM) UD suspension PO PRN (20:42)
[2022-03-18] MEDS: insulin glargine (Lantus) pen - multi-dose SQ SCH (21:25)
[2022-03-18] MEDS: mupirocin 2% nasal ointment 1gm UD NS SCH (21:26)
[2022-03-19] VITALS (7 sets, daily range): BP systolic 93–133; BP diastolic 47–71
[2022-03-19] MEDS: vancomycin/NS 1 GM ADD-VANTAGE 250 ML IV SCH ×2 (03:00→15:00)
[2022-03-19] MEDS ORDERED: gabapentin 400mg capsule PO ONE (05:30)
[2022-03-19] MEDS ORDERED: cefazolin/dext.iso 2gm/100ml 100 ML IV ONE (05:30)
--- NOTE | 2022-03-19 06:30 | NUR ---
Patient in room PCU 3018. I have received report from CESIA Lemus and had the opportunity to ask questions and assume patient care.
[2022-03-19] MEDS: pantoprazole 40mg Tablet.DR PO SCH (07:30)
[2022-03-19] MEDS: ringers solution, lacted 1,000 ML IV SCH (07:45)
[2022-03-19 07:50] LABS: BASOPHILS # (AUTO) 0.1 X10'3 (0-0.2); BASOPHILS % (AUTO) 0.8 % (0-1); EOSINOPHILS # (AUTO) 0.1 X10'3 (0-0.9); HEMATOCRIT 29.6 % (35.0-45.0); HEMOGLOBIN 9.5 g/dl (12.0-16.0); LYMPHOCYTES # (AUTO) 1.2 X10'3 (1.1-4.8); LYMPHOCYTES % (AUTO) 16.5 % (21-51); MEAN CORPUSCULAR HEMOGLOBIN 27.4 PG (27.0-31.0); MEAN CORPUSCULAR HGB CONC 31.9 g/dL (33.0-36.5); MEAN CORPUSCULAR VOLUME 85.9 FL (78-98); MONOCYTES # (AUTO) 0.4 X10'3 (0-0.9); MONOCYTES % (AUTO) 6.1 % (2-12); NEUTROPHILS # (AUTO) 5.4 X10'3 (1.8-7.7); NEUTROPHILS % (AUTO) 75.6 % (42-75); PLATELET COUNT 209 X10'3 (140-440); RED BLOOD COUNT 3.45 X10'6 (4.20-5.60); RED CELL DISTRIBUTION WIDTH 18.5 % (11.5-14.5); WHITE BLOOD COUNT 7.2 X10'3 (4.5-11.0)
[2022-03-19] MEDS: aspirin 81mg, enteric-coated 1 TAB TABLET.DR PO SCH (08:00)
[2022-03-19] MEDS: HYDROchlorothiazide 25mg tablet PO SCH ×2 (08:00→19:16)
[2022-03-19] MEDS: piperacillin/tazo 4.5gm/100ml 100 ML IV SCH ×2 (08:00→20:50)
[2022-03-19] MEDS: levoTHYROXINE 75mcg tablet PO SCH (08:00)
[2022-03-19] MEDS: mupirocin 2% nasal ointment 1gm UD NS SCH ×2 (08:00→20:00)
[2022-03-19] MEDS: carVEDilol 3.125mg tablet PO SCH ×2 (08:00→19:16)
[2022-03-19] MEDS: docusate sod 100mg capsule PO SCH ×2 (08:00→19:15)
[2022-03-19] MEDS: furosemide 10 MG/1 ML 10ml inj IV SCH ×2 (08:00→19:19)
[2022-03-19 08:09] LABS: ALANINE AMINOTRANSFERASE 29 U/L (12-78); ALBUMIN 3.5 G/DL (3.4-5.0); ALBUMIN/GLOBULIN RATIO 1.1 (1.1-1.5); ALKALINE PHOSPHATASE 105 IU/L (46-116); ANION GAP 10 (8-16); ASPARTATE AMINO TRANSFERASE 26 U/L (10-37); BILIRUBIN,TOTAL 1.1 MG/DL (0.1-1.0); BLOOD UREA NITROGEN 19 MG/DL (7-18); BUN/CREATININE RATIO 15.6 (6.6-38.0); CALCIUM 8.7 MG/DL (8.5-10.1); CHLORIDE 98 MMOL/L (99-107); CREATININE 1.22 MG/DL (0.40-0.90); GLUCOSE 176 MG/DL (70-104); SODIUM 138 MMOL/L (135-145); TOTAL PROTEIN 6.8 G/DL (6.4-8.2); eGFR 45 ML/MIN
[2022-03-19 08:15] LABS: POTASSIUM 2.4 MMOL/L (3.5-5.1)
[2022-03-19] MEDS ORDERED: potassium CL 10mEq/100ml bag 100 ML IV PRN (08:20)
[2022-03-19] MEDS ORDERED: potassium Cl 20 mEq SR tablet PO PRN (08:20)
[2022-03-19] MEDS ORDERED: magnesium Cl slow-release 64mg tablet PO PRN (08:20)
[2022-03-19] MEDS ORDERED: magnesium 4gm in 100ml NS 100 ML IV PRN (08:20)
[2022-03-19] MEDS ORDERED: MESSAGE TO PHARMACY IJ ONE (08:45)
[2022-03-19 09:25] LABS: APTT 24 SECONDS (22-32)
[2022-03-19] MEDS: potassium Cl 20 mEq SR tablet PO PRN ×3 (10:28→20:48)
[2022-03-19] MEDS: magnesium hydroxide 30ml (MOM) UD suspension PO PRN (10:37)
[2022-03-19] MEDS: HYDROcodone/acetaminophen 10/325mg tab PO PRN ×2 (10:37→19:16)
[2022-03-19] MEDS: insulin Lispro (HumaLOG) vial - multi-dose SQ SCH ×2 (11:08→13:44)
--- NOTE | 2022-03-19 11:37 | NUR ---
PAGER ID: [phone] MESSAGE: Room: 2978A: Cely Goss: Her BP was 99/47 (69) HR 67. I've held her Lasix, hydrochlorothiazide, and coreg. CESIA Banks 5374
[2022-03-19] MEDS ORDERED: famotidine/PF 10 mg/ml inj IV ONE (12:00)
--- NOTE | 2022-03-19 18:17 | NUR ---
Problems reprioritized. Patient report given, questions answered & plan of care reviewed with CESIA Byrd.
[2022-03-19] MEDS: K and/or MAG REPLACEMENT MC SCH (20:42)
[2022-03-19] MEDS: atorvastatin 20mg tablet PO SCH (20:48)
[2022-03-19] MEDS: insulin glargine (Lantus) pen - multi-dose SQ SCH (21:00)
[2022-03-20] VITALS (24 sets, daily range): BP systolic 100–137; BP diastolic 53–71
[2022-03-20] MEDS ORDERED: VANCOMYCIN LEVEL IV ONE (02:30)
[2022-03-20 03:09] LABS: ALANINE AMINOTRANSFERASE 28 U/L (12-78); ALBUMIN 3.4 G/DL (3.4-5.0); ALKALINE PHOSPHATASE 107 IU/L (46-116); ANION GAP 7 (8-16); ASPARTATE AMINO TRANSFERASE 26 U/L (10-37); BILIRUBIN,TOTAL 1.2 MG/DL (0.1-1.0); BLOOD UREA NITROGEN 19 MG/DL (7-18); BUN/CREATININE RATIO 17.4 (6.6-38.0); CALCIUM 8.7 MG/DL (8.5-10.1); CHLORIDE 98 MMOL/L (99-107); CREATININE 1.09 MG/DL (0.40-0.90); GLUCOSE 147 MG/DL (70-104); POTASSIUM 3.1 MMOL/L (3.5-5.1); SODIUM 136 MMOL/L (135-145); TOTAL CARBON DIOXIDE 31.4 MMOL/L (24-32); TOTAL PROTEIN 6.8 G/DL (6.4-8.2); eGFR 51 ML/MIN
[2022-03-20 03:15] LABS: VANCOMYCIN,TROUGH 24.6 UG/ML (6.0-14.0)
--- NOTE | 2022-03-20 03:56 | NUR ---
Skipped 0300 Vanco per Pharmacy
[2022-03-20] MEDS ORDERED: cefazolin/dext.iso 2gm/100ml 100 ML IV ONE (05:25)
[2022-03-20 06:54] LABS: BASOPHILS % (AUTO) 0.8 % (0-1); EOSINOPHILS % (AUTO) 0.6 % (0-6); HEMATOCRIT 28.8 % (35.0-45.0); HEMOGLOBIN 9.2 g/dl (12.0-16.0); LYMPHOCYTES # (AUTO) 1.1 X10'3 (1.1-4.8); LYMPHOCYTES % (AUTO) 19.1 % (21-51); MEAN CORPUSCULAR VOLUME 84.4 FL (78-98); MONOCYTES # (AUTO) 0.5 X10'3 (0-0.9); MONOCYTES % (AUTO) 8.7 % (2-12); NEUTROPHILS % (AUTO) 70.8 % (42-75); PLATELET COUNT 180 X10'3 (140-440); RED BLOOD COUNT 3.42 X10'6 (4.20-5.60); RED CELL DISTRIBUTION WIDTH 18.3 % (11.5-14.5); WHITE BLOOD COUNT 5.7 X10'3 (4.5-11.0)
[2022-03-20] MEDS: pantoprazole 40mg Tablet.DR PO SCH (07:30)
[2022-03-20] MEDS: carVEDilol 3.125mg tablet PO SCH ×2 (08:00→20:55)
[2022-03-20] MEDS: levoTHYROXINE 75mcg tablet PO SCH (08:00)
[2022-03-20] MEDS: docusate sod 100mg capsule PO SCH ×2 (08:00→20:55)
[2022-03-20] MEDS: HYDROchlorothiazide 25mg tablet PO SCH (08:00)
[2022-03-20] MEDS: aspirin 81mg, enteric-coated 1 TAB TABLET.DR PO SCH (08:00)
[2022-03-20] MEDS: K and/or MAG REPLACEMENT MC SCH ×2 (08:00→20:00)
[2022-03-20] MEDS: mupirocin 2% nasal ointment 1gm UD NS SCH (08:00)
[2022-03-20] MEDS: furosemide 10 MG/1 ML 10ml inj IV SCH (08:00)
[2022-03-20] MEDS ORDERED: levoFLOXACIN-Levaquin 750MG/D5 150 ML IV STA (08:16)
[2022-03-20] MEDS: ringers solution, lacted 1,000 ML IV SCH (10:00)
[2022-03-20] MEDS ORDERED: gabapentin 400mg capsule PO ONE (11:15)
--- NOTE | 2022-03-20 11:30 | NUR ---
pt leaving unit for surgery. still awaiting potassium lab result.
[2022-03-20] MEDS ORDERED: fentaNYL /PF 50mcg/ml 5ml ampule ONE (11:50)
[2022-03-20] MEDS ORDERED: midazolam 1 mg/ML 2ml injection ONE (11:50)
[2022-03-20] MEDS ORDERED: sevoflurane 250ml liquid IH ONE (11:52)
[2022-03-20] MEDS ORDERED: ePHEDrine 50MG/ML INJ. ONE (12:45)
[2022-03-20] MEDS ORDERED: 0.9 % SODIUM CHLORIDE 10 ML VIAL ONE (12:45)
[2022-03-20] MEDS ORDERED: rocuronium 10mg/ml inj IV ONE ×2 (12:45)
[2022-03-20] MEDS ORDERED: LIDOcaine 2% (20mg/ml) 5ml vial ONE (12:45)
[2022-03-20] MEDS ORDERED: propofol inj 20 ML IV ONE (12:45)
[2022-03-20] MEDS ORDERED: dexamethasone sod phosphate 4mg/ml inj. ONE (12:47)
[2022-03-20] MEDS ORDERED: ondansetron/PF 4mg/2ml inj ONE (12:47)
[2022-03-20] MEDS ORDERED: neostigmine methylsulfate 1 MG/ML 10ml vial ONE (13:17)
[2022-03-20] MEDS ORDERED: glycopyrrolate 0.2mg/ml inj ONE (13:18)
[2022-03-20] MEDS ORDERED: magnesium hydroxide 30ml (MOM) UD suspension PO PRN (13:25)
[2022-03-20] MEDS ORDERED: albuterol 2.5 MG/3 ML nebule NEB PRN (13:25)
[2022-03-20] MEDS ORDERED: ondansetron/PF 4mg/2ml inj IV PRN ×2 (13:25→13:45)
[2022-03-20] MEDS ORDERED: morphine 4 MG/ML inj SYRINge ONE ×2 (13:32→13:37)
--- NOTE | 2022-03-20 13:41 | NUR ---
Received from OR via BED, accompanied by Anesthesiologist and report given by DR. MENDOZA Anesthesiologist. PT ARRIVED DROWSY BUT ABLE TO RESPOND TO VERBAL STIMULI ON 8L OF 02 VIA MASK. PT HAS 22G IV TO RIGHT FOREARM AND ART LINE TO RIGHT WRIST C/D/I. RIGHT IJ TRIPE LUMEN CATHETER VERIFIED WITH XRAY AND TEGADERM DRESSING C/D/I. PT HAS WOUNDVAC DRESSING TO MIDSTERNAL CHEST THAT IS C/D/I, NO SWELLING OR BLEEDING NOTED. LEFT LOWER CHEST GAUZE AND TEGADERM DRESSING C/D/I HAS 2 LEXI DRAINAGE. VSS. LIND CATHETER DRAINING CLEAR YELLOW URINE. WILL CONTINUE TO ASSESS. Addendum: 03/20/22 at 1607 by Rajeev Conti RN Amended: Links added.
[2022-03-20] MEDS ORDERED: proCHLORperazine 10 MG/2 ml inj IV PRN (13:45)
[2022-03-20] MEDS ORDERED: HYDROmorphone/PF 0.2 MG/ML SYRINGE IV PRN (13:45)
[2022-03-20] MEDS ORDERED: morphine 2 MG/ML inj. syringe IV PRN (13:45)
[2022-03-20] MEDS ORDERED: acetaminophen 1,000mg/100ml IV 100 ML IV PRN (13:45)
[2022-03-20] MEDS ORDERED: labetalol 20mg/4ml (5mg/ml) syringe IV PRN (13:45)
[2022-03-20] MEDS ORDERED: morphine 4 MG/ML inj SYRINge IV PRN (13:45)
[2022-03-20] MEDS ORDERED: ringers solution, lacted 1,000 ML IV SCH (13:45)
[2022-03-20] MEDS ORDERED: meperidine/PF 25mg/ml syringe IV PRN (13:45)
[2022-03-20] MEDS ORDERED: ketorolac trometh. 30mg/ml inj. IV ONE ×2 (13:45→16:25)
[2022-03-20] MEDS ORDERED: hydrALAZINE 20mg/ml inj. IV PRN (13:45)
[2022-03-20] MEDS: HYDROmorphone/PF 0.2 MG/ML SYRINGE IV PRN ×4 (14:01→14:46)
[2022-03-20] MEDS ORDERED: HYDROmorph/NS 0.2 mg/ml PCA 100 ML IV SCH (14:15)
[2022-03-20] MEDS ORDERED: naloxone 0.4 mg/ml inj IV PRN (14:15)
[2022-03-20] MEDS: VANCOMYCIN 750MG IV in NS 250 ML IV SCH (15:00)
[2022-03-20] MEDS: HYDROmorph/NS 0.2 mg/ml PCA 100 ML IV SCH ×5 (15:11→23:00)
--- NOTE | 2022-03-20 15:41 | NUR ---
PATIENT HAS MET ALL CRITERIA FOR TRANSFER TO ICU FLOOR. VSS. DRESSINGS INTACT. BED LOW, CALL LIGHT PRESENT AND 2 RAILS UP. RN PRESENT TO ACCEPT CARE OF PATIENT AND REPORT HAS BEEN CALLED. ALL QUESTIONS ANSWERED TO ACCEPTING RN. Addendum: 03/20/22 at 1609 by Rajeev Conti RN Amended: Links added.
--- NOTE | 2022-03-20 16:00 | NUR ---
Patient arrived to floor from recovery and placed on bedside monitor. Patient drowsy, but alert and oriented.
[2022-03-20 16:02] LABS: BASOPHILS # (AUTO) 0.1 X10'3 (0-0.2); BASOPHILS % (AUTO) 0.7 % (0-1); EOSINOPHILS % (AUTO) 0.5 % (0-6); HEMATOCRIT 28.2 % (35.0-45.0); LYMPHOCYTES # (AUTO) 0.8 X10'3 (1.1-4.8); LYMPHOCYTES % (AUTO) 10.4 % (21-51); MEAN CORPUSCULAR HEMOGLOBIN 27.4 PG (27.0-31.0); MEAN CORPUSCULAR HGB CONC 31.9 g/dL (33.0-36.5); MEAN CORPUSCULAR VOLUME 85.9 FL (78-98); MEAN PLATELET VOLUME 8.9 FL (7.4-10.4); MONOCYTES # (AUTO) 0.2 X10'3 (0-0.9); MONOCYTES % (AUTO) 2.7 % (2-12); NEUTROPHILS # (AUTO) 6.2 X10'3 (1.8-7.7); NEUTROPHILS % (AUTO) 85.7 % (42-75); PLATELET COUNT 171 X10'3 (140-440); RED BLOOD COUNT 3.28 X10'6 (4.20-5.60); RED CELL DISTRIBUTION WIDTH 18.1 % (11.5-14.5); WHITE BLOOD COUNT 7.3 X10'3 (4.5-11.0)
[2022-03-20 16:06] LABS: ANION GAP 7 (8-16); BLOOD UREA NITROGEN 15 MG/DL (7-18); BUN/CREATININE RATIO 15.2 (6.6-38.0); CALCIUM 8.2 MG/DL (8.5-10.1); CHLORIDE 100 MMOL/L (99-107); CREATININE 0.99 MG/DL (0.40-0.90); GLUCOSE 146 MG/DL (70-104); POTASSIUM 3.8 MMOL/L (3.5-5.1); SODIUM 138 MMOL/L (135-145); TOTAL CARBON DIOXIDE 31.4 MMOL/L (24-32); eGFR 57 ML/MIN
[2022-03-20] MEDS: ibuprofen tablet 400 MG TABLET PO SCH (17:30)
--- NOTE | 2022-03-20 18:09 | NUR ---
Problems reprioritized. Patient report given, questions answered & plan of care reviewed with Dee Dee CALLAWAY.
--- NOTE | 2022-03-20 18:30 | NUR ---
Patient in room CICU 2011. I have received report from CESIA Mckinney and had the opportunity to ask questions and assume patient care.
[2022-03-20] MEDS: gabapentin 300mg capsule PO SCH (20:55)
[2022-03-20] MEDS: atorvastatin 20mg tablet PO SCH (20:55)
[2022-03-20] MEDS: insulin Lispro (HumaLOG) vial - multi-dose SQ SCH (21:20)
[2022-03-20] MEDS: insulin glargine (Lantus) pen - multi-dose SQ SCH (21:20)
[2022-03-21] VITALS (23 sets, daily range): BP systolic 90–121; BP diastolic 47–67
[2022-03-21] MEDS: HYDROmorph/NS 0.2 mg/ml PCA 100 ML IV SCH ×4 (01:00→07:00)
[2022-03-21] MEDS: ringers solution, lacted 1,000 ML IV SCH (01:17)
[2022-03-21 02:37] LABS: BASOPHILS % (AUTO) 0.4 % (0-1); EOSINOPHILS % (AUTO) 0 % (0-6); HEMATOCRIT 27.7 % (35.0-45.0); HEMOGLOBIN 8.8 g/dl (12.0-16.0); LYMPHOCYTES # (AUTO) 0.8 X10'3 (1.1-4.8); LYMPHOCYTES % (AUTO) 9.1 % (21-51); MEAN CORPUSCULAR HEMOGLOBIN 26.8 PG (27.0-31.0); MEAN CORPUSCULAR HGB CONC 31.7 g/dL (33.0-36.5); MEAN CORPUSCULAR VOLUME 84.6 FL (78-98); MEAN PLATELET VOLUME 9.1 FL (7.4-10.4); MONOCYTES # (AUTO) 0.4 X10'3 (0-0.9); MONOCYTES % (AUTO) 4.9 % (2-12); NEUTROPHILS # (AUTO) 7.8 X10'3 (1.8-7.7); NEUTROPHILS % (AUTO) 85.6 % (42-75); PLATELET COUNT 179 X10'3 (140-440); RED BLOOD COUNT 3.27 X10'6 (4.20-5.60); RED CELL DISTRIBUTION WIDTH 18.3 % (11.5-14.5); WHITE BLOOD COUNT 9.1 X10'3 (4.5-11.0)
[2022-03-21 02:53] LABS: ALANINE AMINOTRANSFERASE 24 U/L (12-78); ALBUMIN 2.9 G/DL (3.4-5.0); ALKALINE PHOSPHATASE 78 IU/L (46-116); ANION GAP 3 (8-16); ASPARTATE AMINO TRANSFERASE 23 U/L (10-37); BLOOD UREA NITROGEN 22 MG/DL (7-18); BUN/CREATININE RATIO 20.4 (6.6-38.0); CALCIUM 8.6 MG/DL (8.5-10.1); CHLORIDE 100 MMOL/L (99-107); CREATININE 1.08 MG/DL (0.40-0.90); GLUCOSE 216 MG/DL (70-104); POTASSIUM 4.1 MMOL/L (3.5-5.1); SODIUM 133 MMOL/L (135-145); TOTAL CARBON DIOXIDE 30.2 MMOL/L (24-32); TOTAL PROTEIN 5.8 G/DL (6.4-8.2); eGFR 52 ML/MIN
[2022-03-21] MEDS: VANCOMYCIN 750MG IV in NS 250 ML IV SCH (04:14)
--- NOTE | 2022-03-21 06:13 | NUR ---
Problems reprioritized. Patient report given, questions answered & plan of care reviewed with CESIA Dominguez.
[2022-03-21] MEDS: carVEDilol 3.125mg tablet PO SCH ×2 (08:08→08:30)
[2022-03-21] MEDS: pantoprazole 40mg Tablet.DR PO SCH (08:08)
[2022-03-21] MEDS: levoFLOXACIN-Levaquin 750MG/D5 150 ML IV SCH (08:08)
[2022-03-21] MEDS: levoTHYROXINE 75mcg tablet PO SCH (08:08)
[2022-03-21] MEDS: gabapentin 300mg capsule PO SCH ×2 (08:09→20:00)
[2022-03-21] MEDS: aspirin 81mg, enteric-coated 1 TAB TABLET.DR PO SCH (08:09)
[2022-03-21] MEDS: docusate sod 100mg capsule PO SCH ×2 (08:09→20:00)
[2022-03-21] MEDS: insulin Lispro (HumaLOG) vial - multi-dose SQ SCH ×3 (08:11→17:48)
[2022-03-21] MEDS ORDERED: PCA WASTE DOCUMENTATION MC ONE (08:45)
[2022-03-21] MEDS: ibuprofen tablet 400 MG TABLET PO SCH ×3 (08:49→18:03)
[2022-03-21] MEDS: morphine 2 MG/ML inj. syringe IV PRN ×3 (08:53→21:56)
--- NOTE | 2022-03-21 11:25 | NUR ---
Nutrition consult: Pt admit for sternal dehiscence, large pericardial effusion, CHF, and bilat PE. Pt POD #1 s/p lower sternal wound excisional debridement with wound VAC placement, L mini-thoracotomy for pericardial window and pleural and pericardial drain placement per physician note. Attempted visit with pt at bedside however pt sleeping. Per EMR pt A/O x 4 but drowsy post-op. Pt would benefit from protein education once more stable. Pt on a CHO controlled diet and eating well with average 80% PO intake throughout LOS with 100% PO intake at breakfast this morning meeting estimated nutrient needs. Recommend continuing without heart healthy restriction in view of lipid panel WNL with the exception of low LDL and HDL. LBM 7/6, receiving routine bowel care. Will continue to follow. Recommendations: 1) Continue CHO controlled diet 2) Monitor need for ONS/additional protein 3) Routine bowel care 4) Daily scaled weights per rx 5) Protein education once stable Addendum: 03/21/22 at [address] Amended: Links added.
[2022-03-21] MEDS: HYDROcodone/acetaminophen 10/325mg tab PO PRN ×2 (14:47→18:53)
--- NOTE | 2022-03-21 19:15 | NUR ---
Patient in room CICU 2011. I have received report from Alberto and had the opportunity to ask questions and assume patient care.
[2022-03-21] MEDS: potassium Cl 20 mEq SR tablet PO SCH (20:00)
[2022-03-21] MEDS: magnesium Cl slow-release 64mg tablet PO SCH (20:00)
[2022-03-21] MEDS: atorvastatin 20mg tablet PO SCH (21:18)
[2022-03-21] MEDS: insulin glargine (Lantus) pen - multi-dose SQ SCH (21:38)
[2022-03-22] VITALS (24 sets, daily range): BP systolic 11–125; BP diastolic 40–68
[2022-03-22] MEDS ORDERED: VANCOMYCIN LEVEL IV ONE (02:30)
[2022-03-22] MEDS: HYDROcodone/acetaminophen 10/325mg tab PO PRN ×3 (03:41→21:13)
[2022-03-22] MEDS: magnesium hydroxide 30ml (MOM) UD suspension PO PRN (03:49)
[2022-03-22 06:20] LABS: BASOPHILS # (AUTO) 0.1 X10'3 (0-0.2); BASOPHILS % (AUTO) 0.7 % (0-1); EOSINOPHILS # (AUTO) 0.1 X10'3 (0-0.9); HEMATOCRIT 27.3 % (35.0-45.0); HEMOGLOBIN 8.8 g/dl (12.0-16.0); LYMPHOCYTES # (AUTO) 1.4 X10'3 (1.1-4.8); LYMPHOCYTES % (AUTO) 20.3 % (21-51); MEAN CORPUSCULAR HEMOGLOBIN 27.1 PG (27.0-31.0); MEAN CORPUSCULAR HGB CONC 32.2 g/dL (33.0-36.5); MEAN CORPUSCULAR VOLUME 84.2 FL (78-98); MEAN PLATELET VOLUME 8.9 FL (7.4-10.4); MONOCYTES # (AUTO) 0.6 X10'3 (0-0.9); MONOCYTES % (AUTO) 8.2 % (2-12); NEUTROPHILS # (AUTO) 4.8 X10'3 (1.8-7.7); NEUTROPHILS % (AUTO) 68.8 % (42-75); PLATELET COUNT 178 X10'3 (140-440); RED BLOOD COUNT 3.25 X10'6 (4.20-5.60); RED CELL DISTRIBUTION WIDTH 17.9 % (11.5-14.5)
[2022-03-22 06:38] LABS: ALBUMIN 2.9 G/DL (3.4-5.0); ANION GAP 4 (8-16); BLOOD UREA NITROGEN 16 MG/DL (7-18); CALCIUM 8.7 MG/DL (8.5-10.1); CHLORIDE 94 MMOL/L (99-107); CREATININE 0.89 MG/DL (0.40-0.90); GLUCOSE 124 MG/DL (70-104); POTASSIUM 4.1 MMOL/L (3.5-5.1); SODIUM 129 MMOL/L (135-145); eGFR 64 ML/MIN
[2022-03-22] MEDS: pantoprazole 40mg Tablet.DR PO SCH (07:43)
[2022-03-22] MEDS: potassium Cl 20 mEq SR tablet PO SCH ×2 (07:43→21:12)
[2022-03-22] MEDS: magnesium Cl slow-release 64mg tablet PO SCH ×2 (07:43→21:11)
[2022-03-22] MEDS: aspirin 81mg, enteric-coated 1 TAB TABLET.DR PO SCH (07:43)
[2022-03-22] MEDS: docusate sod 100mg capsule PO SCH ×2 (07:43→21:11)
[2022-03-22] MEDS: ibuprofen tablet 400 MG TABLET PO SCH ×3 (07:43→18:00)
[2022-03-22] MEDS: levoTHYROXINE 75mcg tablet PO SCH (07:44)
[2022-03-22] MEDS: gabapentin 300mg capsule PO SCH (07:44)
[2022-03-22] MEDS: levoFLOXACIN-Levaquin 750MG/D5 150 ML IV SCH (07:44)
[2022-03-22] MEDS: carVEDilol 3.125mg tablet PO SCH ×2 (08:00→21:11)
[2022-03-22] MEDS: insulin Lispro (HumaLOG) vial - multi-dose SQ SCH ×3 (08:21→17:55)
[2022-03-22] MEDS: furosemide 40mg tablet PO SCH (08:24)
[2022-03-22] MEDS: morphine 2 MG/ML inj. syringe IV PRN ×2 (10:18→18:59)
--- NOTE | 2022-03-22 12:19 | NUR ---
F/u: Two attempted visits with pt at bedside however pt unavailable. Will f/u at another time. Addendum: 03/22/22 at [address] Amended: Links added.
--- NOTE | 2022-03-22 14:16 | NUR ---
WOUND VAC EDUCATION PROVIDED BY WOUND CARE 1. Patient instructed to call the Wound Center or their Home Health Agency immediately if: * They notice a change in the color or amount of the fluid in the canister. * Their wound looks more red than usual or has a foul smell. * The skin around their wound looks reddened or irritated. * The dressing feels loose or appears to be loose. * They experience any increase or changes in their pain. * The alarm will not turn off. 2. Patient instructed that they should not be disconnected from suction for more than 2 hours at a time. * If they are not able to get the suction back on, they need to remove the dressing and take all of the foam out of the wound. * Then moisten sterile gauze with normal saline and place on/in the wound. * Change the dressing once a day until arrangements have been made to replace the wound vac dressing. 3. Patient instructed to turn the wound vac machine OFF and call 911 or go to the ED immediately if their canister fills rapidly with blood. 4. If any of these occur while in the hospital tell a nurse immediately. Addendum: 03/22/22 at 1417 by Louann Joy RN Amended: Links added.
[2022-03-22] MEDS: atorvastatin 20mg tablet PO SCH (21:12)
[2022-03-22] MEDS: insulin glargine (Lantus) pen - multi-dose SQ SCH (21:20)
[2022-03-23] VITALS (24 sets, daily range): BP systolic 87–119; BP diastolic 44–68
--- NOTE | 2022-03-23 06:17 | NUR ---
Problems reprioritized. Patient report given, questions answered & plan of care reviewed with HERBERT CALLAWAY.
[2022-03-23 06:48] LABS: BASOPHILS % (AUTO) 0.7 % (0-1); EOSINOPHILS # (AUTO) 0.1 X10'3 (0-0.9); EOSINOPHILS % (AUTO) 2.4 % (0-6); HEMATOCRIT 27.8 % (35.0-45.0); HEMOGLOBIN 8.8 g/dl (12.0-16.0); LYMPHOCYTES # (AUTO) 1.3 X10'3 (1.1-4.8); LYMPHOCYTES % (AUTO) 22.2 % (21-51); MEAN CORPUSCULAR HEMOGLOBIN 26.9 PG (27.0-31.0); MEAN CORPUSCULAR HGB CONC 31.7 g/dL (33.0-36.5); MEAN CORPUSCULAR VOLUME 84.7 FL (78-98); MEAN PLATELET VOLUME 9.1 FL (7.4-10.4); MONOCYTES # (AUTO) 0.5 X10'3 (0-0.9); MONOCYTES % (AUTO) 8.9 % (2-12); NEUTROPHILS # (AUTO) 3.9 X10'3 (1.8-7.7); NEUTROPHILS % (AUTO) 65.8 % (42-75); PLATELET COUNT 178 X10'3 (140-440); RED BLOOD COUNT 3.28 X10'6 (4.20-5.60); RED CELL DISTRIBUTION WIDTH 18.6 % (11.5-14.5); WHITE BLOOD COUNT 5.9 X10'3 (4.5-11.0)
[2022-03-23 06:57] LABS: ALBUMIN 2.7 G/DL (3.4-5.0); ANION GAP 6 (8-16); BLOOD UREA NITROGEN 18 MG/DL (7-18); BUN/CREATININE RATIO 18.8 (6.6-38.0); CALCIUM 8.8 MG/DL (8.5-10.1); CHLORIDE 99 MMOL/L (99-107); CREATININE 0.96 MG/DL (0.40-0.90); GLUCOSE 157 MG/DL (70-104); POTASSIUM 4.8 MMOL/L (3.5-5.1); SODIUM 135 MMOL/L (135-145); eGFR 59 ML/MIN
[2022-03-23 07:23] LABS: ANISOCYTOSIS 2+; ELLIPTOCYTES FEW; MICROCYTOSIS 1+; PLATELET ESTIMATE NORMAL; SCHISTOCYTES FEW; TARGET CELLS FEW; TEAR DROP CELLS FEW
[2022-03-23] MEDS: ibuprofen tablet 400 MG TABLET PO SCH ×3 (07:37→17:51)
[2022-03-23] MEDS: aspirin 81mg, enteric-coated 1 TAB TABLET.DR PO SCH (07:37)
[2022-03-23] MEDS: furosemide 40mg tablet PO SCH (07:37)
[2022-03-23] MEDS: levoTHYROXINE 75mcg tablet PO SCH (07:37)
[2022-03-23] MEDS: pantoprazole 40mg Tablet.DR PO SCH (07:38)
[2022-03-23] MEDS: magnesium Cl slow-release 64mg tablet PO SCH ×2 (07:38→21:07)
[2022-03-23] MEDS: docusate sod 100mg capsule PO SCH ×2 (07:53→20:00)
[2022-03-23] MEDS: potassium Cl 20 mEq SR tablet PO SCH (07:53)
[2022-03-23] MEDS: carVEDilol 3.125mg tablet PO SCH ×2 (08:00→20:00)
[2022-03-23] MEDS: insulin Lispro (HumaLOG) vial - multi-dose SQ SCH ×2 (08:11→12:57)
[2022-03-23] MEDS: HYDROcodone/acetaminophen 10/325mg tab PO PRN ×3 (08:19→21:09)
[2022-03-23] MEDS: morphine 2 MG/ML inj. syringe IV PRN (10:26)
[2022-03-23] MEDS: atorvastatin 20mg tablet PO SCH (21:08)
[2022-03-23] MEDS: insulin glargine (Lantus) pen - multi-dose SQ SCH (21:12)
--- NOTE | 2022-03-23 23:27 | NUR ---
TRANSFER TO 3017b , per wheelchair , alert and oriented , denies pain.report given.
[2022-03-24 02:00] VITALS: BP 121/64
[2022-03-24] MEDS: HYDROcodone/acetaminophen 10/325mg tab PO PRN ×2 (03:45→22:34)
[2022-03-24] MEDS: morphine 2 MG/ML inj. syringe IV PRN ×3 (04:48→20:15)
--- NOTE | 2022-03-24 07:00 | NUR ---
Patient in room PCU 3017. I have received report from Mariah CALLAWAY and had the opportunity to ask questions and assume patient care.
[2022-03-24 07:05] VITALS: BP 109/55
[2022-03-24 07:28] LABS: ALBUMIN 2.6 G/DL (3.4-5.0); ANION GAP 7 (8-16); BLOOD UREA NITROGEN 16 MG/DL (7-18); BUN/CREATININE RATIO 17.8 (6.6-38.0); CALCIUM 8.4 MG/DL (8.5-10.1); CHLORIDE 101 MMOL/L (99-107); GLUCOSE 150 MG/DL (70-104); POTASSIUM 4.7 MMOL/L (3.5-5.1); SODIUM 137 MMOL/L (135-145); TOTAL CARBON DIOXIDE 28.9 MMOL/L (24-32); eGFR 64 ML/MIN
[2022-03-24 07:29] LABS: BASOPHILS % (AUTO) 0.6 % (0-1); EOSINOPHILS # (AUTO) 0.2 X10'3 (0-0.9); EOSINOPHILS % (AUTO) 3.1 % (0-6); HEMATOCRIT 27.6 % (35.0-45.0); HEMOGLOBIN 8.9 g/dl (12.0-16.0); LYMPHOCYTES # (AUTO) 1.1 X10'3 (1.1-4.8); LYMPHOCYTES % (AUTO) 20.9 % (21-51); MEAN CORPUSCULAR HGB CONC 32.1 g/dL (33.0-36.5); MEAN CORPUSCULAR VOLUME 84.2 FL (78-98); MEAN PLATELET VOLUME 9.4 FL (7.4-10.4); MONOCYTES # (AUTO) 0.5 X10'3 (0-0.9); MONOCYTES % (AUTO) 8.7 % (2-12); NEUTROPHILS # (AUTO) 3.6 X10'3 (1.8-7.7); NEUTROPHILS % (AUTO) 66.7 % (42-75); PLATELET COUNT 177 X10'3 (140-440); RED BLOOD COUNT 3.28 X10'6 (4.20-5.60); RED CELL DISTRIBUTION WIDTH 18.5 % (11.5-14.5); WHITE BLOOD COUNT 5.4 X10'3 (4.5-11.0)
[2022-03-24] MEDS: docusate sod 100mg capsule PO SCH ×2 (08:00→20:00)
[2022-03-24] MEDS ORDERED: levoFLOXACIN-Levaquin 750MG/D5 150 ML IV SCH (08:00)
[2022-03-24] MEDS: carVEDilol 3.125mg tablet PO SCH ×2 (09:09→20:14)
[2022-03-24] MEDS: magnesium Cl slow-release 64mg tablet PO SCH ×2 (09:09→20:00)
[2022-03-24] MEDS: pantoprazole 40mg Tablet.DR PO SCH (09:09)
[2022-03-24] MEDS: levoTHYROXINE 75mcg tablet PO SCH (09:10)
[2022-03-24] MEDS: aspirin 81mg, enteric-coated 1 TAB TABLET.DR PO SCH (09:10)
[2022-03-24] MEDS: potassium Cl 20 mEq SR tablet PO SCH (09:10)
[2022-03-24] MEDS: furosemide 40mg tablet PO SCH (09:11)
[2022-03-24] MEDS: ibuprofen tablet 400 MG TABLET PO SCH ×3 (09:11→18:04)
[2022-03-24] MEDS: insulin Lispro (HumaLOG) vial - multi-dose SQ SCH (10:04)
[2022-03-24 11:00] VITALS: BP 97/50
--- NOTE | 2022-03-24 15:08 | NUR ---
Was not able to treat patient for the afternoon blood glucose, patient will be continue therapy during dinner interval.
[2022-03-24 16:09] VITALS: BP 106/59
[2022-03-24 18:00] VITALS: BP 106/53
--- NOTE | 2022-03-24 18:52 | NUR ---
Problems reprioritized. Patient report given, questions answered & plan of care reviewed with Caitlin CALLAWAY.
[2022-03-24] MEDS: atorvastatin 20mg tablet PO SCH (20:14)
--- NOTE | 2022-03-24 20:52 | NUR ---
HELD SCHEDULED MAGNESIUM DUE TO PENDING LAB RESULTS
[2022-03-24 22:00] VITALS: BP 123/37
[2022-03-24] MEDS: insulin glargine (Lantus) pen - multi-dose SQ SCH (22:33)
[2022-03-25 02:00] VITALS: BP 115/55
[2022-03-25] MEDS: HYDROcodone/acetaminophen 10/325mg tab PO PRN ×2 (02:40→07:59)
--- NOTE | 2022-03-25 06:39 | NUR ---
Problems reprioritized. Patient report given, questions answered & plan of care reviewed with CESIA ASHLEY.
--- NOTE | 2022-03-25 06:55 | NUR ---
Patient in room PCU 3012. I have received report from Caitlin CALLAWAY and had the opportunity to ask questions and assume patient care.
[2022-03-25 07:00] VITALS: BP 95/53
[2022-03-25 07:12] LABS: BASOPHILS % (AUTO) 0.7 % (0-1); EOSINOPHILS # (AUTO) 0.1 X10'3 (0-0.9); EOSINOPHILS % (AUTO) 2.4 % (0-6); HEMATOCRIT 27.3 % (35.0-45.0); HEMOGLOBIN 8.7 g/dl (12.0-16.0); LYMPHOCYTES # (AUTO) 1.1 X10'3 (1.1-4.8); LYMPHOCYTES % (AUTO) 19.1 % (21-51); MEAN CORPUSCULAR HEMOGLOBIN 26.5 PG (27.0-31.0); MEAN CORPUSCULAR HGB CONC 31.7 g/dL (33.0-36.5); MEAN CORPUSCULAR VOLUME 83.5 FL (78-98); MEAN PLATELET VOLUME 8.9 FL (7.4-10.4); MONOCYTES # (AUTO) 0.5 X10'3 (0-0.9); MONOCYTES % (AUTO) 8.8 % (2-12); NEUTROPHILS # (AUTO) 4.1 X10'3 (1.8-7.7); PLATELET COUNT 183 X10'3 (140-440); RED BLOOD COUNT 3.27 X10'6 (4.20-5.60); RED CELL DISTRIBUTION WIDTH 18.1 % (11.5-14.5)
[2022-03-25 07:19] LABS: ALBUMIN 2.5 G/DL (3.4-5.0); ANION GAP 7 (8-16); BLOOD UREA NITROGEN 14 MG/DL (7-18); BUN/CREATININE RATIO 18.7 (6.6-38.0); CALCIUM 8.5 MG/DL (8.5-10.1); CHLORIDE 103 MMOL/L (99-107); CREATININE 0.75 MG/DL (0.40-0.90); GLUCOSE 163 MG/DL (70-104); SODIUM 140 MMOL/L (135-145); TOTAL CARBON DIOXIDE 29.8 MMOL/L (24-32); eGFR 79 ML/MIN
[2022-03-25] MEDS: levoTHYROXINE 75mcg tablet PO SCH (07:53)
[2022-03-25] MEDS: magnesium Cl slow-release 64mg tablet PO SCH (07:53)
[2022-03-25] MEDS: carVEDilol 3.125mg tablet PO SCH (07:53)
[2022-03-25] MEDS: aspirin 81mg, enteric-coated 1 TAB TABLET.DR PO SCH (07:54)
[2022-03-25] MEDS: pantoprazole 40mg Tablet.DR PO SCH (07:54)
[2022-03-25] MEDS: potassium Cl 20 mEq SR tablet PO SCH (07:54)
[2022-03-25] MEDS: ibuprofen tablet 400 MG TABLET PO SCH ×3 (07:55→17:30)
[2022-03-25] MEDS: docusate sod 100mg capsule PO SCH (07:55)
[2022-03-25] MEDS: furosemide 40mg tablet PO SCH (07:55)
[2022-03-25] MEDS: insulin Lispro (HumaLOG) vial - multi-dose SQ SCH (08:08)
[2022-03-25] MEDS ORDERED: LEVO500T90 PO (08:43)
[2022-03-25] MEDS ORDERED: HYDR-3972 PO (08:43)
[2022-03-25] MEDS ORDERED: POTA-197 PO (08:43)
[2022-03-25] MEDS: morphine 2 MG/ML inj. syringe IV PRN (10:53)
[2022-03-25 11:00] VITALS: BP 122/57
--- NOTE | 2022-03-25 17:42 | NUR ---
PATIENT DISCHARGE HOME WITH HOME WOUND VAC. DRESSING CLEAN DRY AND INTACT UPON DISCHARGE. PATIENT WAS EDUCATED ON HOME VAC AND SHOWED VERBAL UNDERSTANDING OF DISCHARGE TEACHING. PATIENT LEFT WITH ALL BELONGINGS AT DISCHARGE AND IV WAS TAKEN OUT AT THIS TIME CANULA WAS WHOLE AND INTACT UPON INSPECTION. PATIENT EDUCATED ON NEW MEDICATION AND EXPRESSED UNDERSTANDING. PATIENT WAS TRANSPORTED HOME IN PRIVATE VEHICLE WITH ALL OF THE SUPPLIES.
== END 2022-03-25 16:25 | disposition home health service (06) | DRG 856 ==
LOC: ER 13:36 → ED HOLD 21:58 → EDBEDREQ 22:26 → ORTHO 4S 03-18 01:25 → PCU 3S 03-18 14:00 → CICU 2S 03-20 15:41 → PCU 3S 03-24 00:07
PROVIDERS: ADMIT Family Medicine; ATTEND Family Medicine
PROC: BW241ZZ Computerized Tomography (CT Scan) of Chest and Abdomen using Low Osmolar Contrast (ICD-10-PCS; 2022-03-17)
PROC: CB121ZZ Planar Nuclear Medicine Imaging of Lungs and Bronchi using Technetium 99m (Tc-99m) (ICD-10-PCS; 2022-03-18)
PROC: 0JB60ZZ Excision of Chest Subcutaneous Tissue and Fascia, Open Approach (ICD-10-PCS; 2022-03-20)
PROC: 0W9D0ZZ Drainage of Pericardial Cavity, Open Approach (ICD-10-PCS; principal; 2022-03-20 11:52)
DX: T81.41XA Infection following a procedure, superficial incisional surgical site, initial encounter (principal); I21.A1 Myocardial infarction type 2; J18.9 Pneumonia, unspecified organism; N17.0 Acute kidney failure with tubular necrosis; I31.3 Pericardial effusion (noninflammatory); T81.31XA Disruption of external operation (surgical) wound, not elsewhere classified, initial encounter; R18.8 Other ascites; J98.11 Atelectasis; I50.22 Chronic systolic (congestive) heart failure; E87.1 Hypo-osmolality and hyponatremia; Y71.3 Surgical instruments, materials and cardiovascular devices (including sutures) associated with adverse incidents; B96.20 Unspecified Escherichia coli [E. coli] as the cause of diseases classified elsewhere; D64.9 Anemia, unspecified; E87.6 Hypokalemia; E78.5 Hyperlipidemia, unspecified; E11.9 Type 2 diabetes mellitus without complications; E03.9 Hypothyroidism, unspecified; K74.60 Unspecified cirrhosis of liver; I25.10 Atherosclerotic heart disease of native coronary artery without angina pectoris; Z95.1 Presence of aortocoronary bypass graft; Z79.899 Other long term (current) drug therapy; Y92.89 Other specified places as the place of occurrence of the external cause
CPT/HCPCS: 93308; 93312; 93325; 96365; 96366; 96375; 99285; Z7506; Z7508; 36415; 71045; 71260; 78582; 80048; 80053; 80061; 80202; 81003; 81025; 82140; 82550; 82948; 83605; 83690; 83735; 83880; 84100; 84132; 84145; 84439; 84443; 84480; 84484; 85008; 85025; 85379; 85610; 85730; 86885; 86900; 86901; 86920; 87040; 87070; 87075; 87077; 87081; 87186; 93005; 94760; 97116; 97161; 97164; 97530; A4215; A4618; A4620; A6196; A6213; A6223; A6258; A6260; A6402; A6449; A6550; A7000; A9539; A9540; C1758; G0378; J1100; J1170; J1815; J1885; J1940; J1956; J2250; J2270; J2405; J2543; J2704; J2710; J3010; J3370; J3480; J3490; J7030; J7040; J7050; J7120; Q9967